=== PATIENT | female | born 1935 | race Caucasian/White ===

== ENCOUNTER → 2023-04-13 10:58 | Outpatient (REF) | payer MEDICARE, OTHER, SELFPAY | LOC: DHCBC/DCA 10:58 | PROVIDERS: ATTENDING PHYSICIAN Nurse Practitioner; FAMILY PHYSICIAN Family Medicine | DX: R07.89 Other chest pain (principal) | CPT/HCPCS: 78452; 93017; A9500; J2785 ==

== ENCOUNTER 2023-04-14 18:13 | Emergency (ER) | payer MEDICARE, OTHER, SELFPAY ==
[2023-04-14 18:16] VITALS: BMI 23.4
[2023-04-14 18:18] VITALS: BP 137/86
[2023-04-14 18:33] LABS: Urine Albumin Trace (Neg - Trace); Urine Bilirubin Negative (Negative); Urine Character Clear (Clear); Urine Color Yellow; Urine Glucose Negative (Negative); Urine Ketone Negative (Negative); Urine Leukocyte 1+ (Negative); Urine Nitrite Negative (Negative); Urine Occult Blood Negative (Negative); Urine Specific Gravity 1.015 (<1.030); Urine Urobilinogen Negative (Neg - 1+)
[2023-04-14 18:45] LABS: Urine Red Blood Cell None Seen /HPF (0-2)
--- NOTE | 2023-04-14 19:10 | ED.GENMED ---
History of Present Illness
General
Chief Complaint: Urinary Symptoms
Source: patient
Exam Limitations: none
Time Seen by Provider: 04/14/23 18:35
Nursing documentation reviewed up to this point in time: agreed with
Travel History
Have you had any contact with someone who has COVID-19?: No
Do you have any symptoms of coronavirus? Fever > 100 degrees, chills, cough, shortness of breath, sore throat, loss of taste or smell, muscle aches, or headache?: No
History of Present Illness
History of Present Illness:
Patient is an 87-year-old female who presents to the ER for evaluation. Patient reports she has had urinary frequency for the past several days. She also had right flank/back pain which started about a week ago. She reports it was very intense
and severe however though it is not severe she still has it. She also has a pinched nerve in her back which is chronic but was not sure if this was the cause of her pain. She was treated for UTI several weeks ago. She denies any associated fever
chills nausea vomiting, abdominal pain.
Past History
Past History
ED Past Medical History: Other (kidney stones, diverticulitis, glaucoma, SVT)
ED Past Surgical History: Appendectomy, Bowel resection and Gynecological (hysterectomy)
Social History
Tobacco: Non-smoker
Alcohol: Occasional
Personal:
Living: alone
Employment: Retired
Family History
Family History: Negative Early CAD
Review of Systems
Review of Systems
Allergies reviewed?: Yes
All Other Systems: ROS reviewed and negative except as documented in HPI and ROS
Constitutional: Reports no symptoms; Denies fever, fatigue or chills
Respiratory: Reports no symptoms
Cardiac: Reports no symptoms
ABD/GI: Reports no symptoms; Denies nausea or vomiting
: Reports frequency and flank pain
Musculoskeletal: Reports other (right back pain )
Skin: Reports no symptoms
Neurological: Reports no symptoms
Psychiatric: Reports no symptoms
Phy Exam
General Physical Exam
General Presentation: no apparent distress
General age: appears stated age
General Skin: warm and dry
General Habitus: elderly
General Mental: alert
Gastrointestinal Exam
Gastrointestinal Exam: non tender and soft
Neurological Exam
Neurological Exam: alert and oriented x3
Musculoskeletal Exam
Musculoskeletal Exam: full ROM
Skin Exam
Skin Exam: normal color and warm/dry
Psychiatric Exam
Psychiatric Exam: normal mood/affect
Course
Orders/Labs/Results
Orders:
Orders
04/14/23 18:24
Urinalysis Reflex To Culture Urgent
Date Specimen was Collected: 04/14/23
Time Specimen was Collected: 18:20
Urine Microscopic Reflex Cult Urgent
Urine Culture Urgent
FRANKY Source: U
Specimen Description:
Date Specimen was Collected: 04/14/23
Time Specimen was Collected: 18:20
04/14/23 19:17
IV Insert/Care/Rem.- Treatment PRN
04/14/23 19:18
CT Abd/pel Without Iv Or Oral Urgent
Comment:
Reason For Exam: right flank pain
04/14/23 19:27
Complete Blood Count/With Diff Urgent
Comprehensive Metabolic Panel Urgent
04/14/23 21:22
Vital Signs- Treatment ONCE
Frequency: Once
04/14/23 21:23
Add On - Microbiology Urgent
Tests Added?: urine culture
Abnormal Lab Results
04/14/23 04/14/23
18:24 19:27
RBC 3.92 L 10^6/uL
(4.20-5.40)
Hct 35.6 L %
(37.0-47.0)
BUN 18 H mg/dl
(7-17)
Glucose 129 H mg/dl
(70-99)
Leukocyte Esterase Rfl 1+ A
(Negative)
04/14/23 19:27
04/14/23 19:27
Vital Signs
Initial and Last Documented VS:
Initial Vital Signs
Temp Pulse Resp Pulse Ox
98.7 F 84 16 95
04/14/23 18:16 04/14/23 18:16 04/14/23 18:16 04/14/23 18:16
Last Documented Vital Signs
Temp Pulse Resp BP Pulse Ox
98.7 F 84 16 137/86 95
04/14/23 18:16 04/14/23 18:16 04/14/23 18:16 04/14/23 18:18 04/14/23 18:16
Push Button Switch Assembler consulted with Physician
Push Button Switch Assembler consulted with physician?: Yes
Name of Physician Consulted: nalini
MDM/Problems Addressed
Differential Diagnosis Includes:
Not limited to muscular back pain, UTI, renal colic, pyelonephritis
MDM/Problems Addressed:
Patient is an 87-year-old female who presented for urinary frequency. She was on antibiotics several weeks ago for UTI was concerned that she might have a UTI. She also had right-sided back pain several days ago was concerned about possible renal
stone. She does have history of nerve back pain and was unable to tell the difference. She presents here awake alert no acute distress denies any fever or chills. She is nontoxic afebrile with a normal white count stable hemoglobin urinalysis
does not appear infected. No obstructing renal calculi on CAT scan. Patient looks well nontoxic will DC home with close outpatient follow-up family doctor. I did add on urine culture
*Radiology
Radiology exam reviewed: radiology read reviewed
*Pulse Oximetry
Patient hypoxic: no
*Critical Care Note
Total Time (30-74mins, 75-104mins- exclusive of procedures): Not Applicable
ED Attending Note
-
Portions of this chart may have been created with voice recognition software.� Occasional wrong word or��sound alike� substitutions may have occurred due to the inherent limitations of voice recognition software.
Discharge Plan
Departure
Patient Disposition: Home (Routine Discharge)
Date of Disposition: 04/14/23
Time of Disposition: 21:22
Patient with high blood pressure during this ER visit?: Yes
Condition: Fair
Covid-19: Not Applicable
Discharge Problem:
Urinary frequency
Instructions: BLOOD PRESSURE
Prescriptions:
No Action
biotin 1 MG tablet
1 mg PO DAILY
omega 7-czh-jei-fish oil [Fish Oil] 1,000 MG capsule
1,000 mg PO DAILY
Hold Instructions: Resume on 03/17/22.
atenolol 25 MG tablet
37.5 mg PO BID
lorazepam 0.5 MG tablet
0.5 mg PO HS
tretinoin [Atralin] 45 GM gel
1 applic topical HSPRN PRN (Reason: FACIAL BLOTCHES )
Lumigan 1 DROP drops
1 drp BOTH EYES HS
Rosuvastatin Calcium
5 mg PO DAILY
Patient Comments:
CLARIFYING WITH PHARMACY 08/29/20
Zebic Multivitamin 1 TABLET
1 tab PO DAILY
coenzyme Q10 [Co Q-10] 200 mg Capsule
200 mg PO DAILY
Hold Instructions: Resume on 03/17/22.
Prolia 60 mg/mL Syringe
60 mg SC [id number]
docusate sodium 100 mg Capsule
100 mg PO BID Qty: 30 0RF
polyethylene glycol 3350 17 gram Powder In Packet
17 g PO DAILY Qty: 14 0RF
pantoprazole 40 mg Tablet,Delayed Release (Dr/Ec)
40 mg PO DAILY Qty: 30 0RF
Rx Instructions:
Take daily while on pain meds to avoid GI upset.
sennosides [senna] 8.6 mg Tablet
17.2 mg PO BID Qty: 30 0RF
prednisone 10 mg tablet
30 mg PO TAPER Qty: 12 0RF
Rx Instructions:
3 TABS X 2 DAYS, 2 TABS X 2 DAYS, 1 TAB X 2 DAYS, THEN STOP
acetaminophen-codeine 300-30 mg tablet
1 tab PO Q6H PRN (Reason: moderate-severe pain) Qty: 30 0RF
Rx Instructions:
1 tab for moderate pain, 2 if severe.
Dx discectomy. Ongoing therapy.
acetaminophen 325 mg capsule
650 mg PO Q4H PRN (Reason: mild pain) Qty: 60 0RF
Rx Instructions:
DO NOT exceed >4000 mg daily while on Tylenol with Codeine.
1 Tylenol with Codeine = 300 mg of Tylenol.
cephalexin 500 mg capsule
500 mg PO QID Qty: 20 0RF
Saccharomyces boulardii [Florastor] 250 mg capsule
250 mg PO BID Qty: 10 0RF
Rx Instructions:
Over the counter. Take while on antibiotic.
If unavailable, choose another probiotic.
ciprofloxacin drops
1 drp RIGHT EYE QID Qty: 0 0RF
Rx Instructions:
for rt corneal abrasion
pantoprazole [Protonix] 40 mg tablet,delayed release (DR/EC)
40 mg PO DAILY Qty: 14 0RF
cephalexin 500 mg capsule
500 mg PO BID 7 Days Qty: 14 0RF
Referrals:
Britney Valenzuela NP [Family Provider] -
Activity Restrictions/Additional Instructions:
You were seen here today for urinary frequency however there was no obvious urine infection in your urinalysis. Your labs are unremarkable. A urine culture will be sent. Stay well-hydrated. Follow-up with your family doctor the next 2 to 3 days
for reevaluation of your symptoms and return if any worsening of symptoms
Interventions
Interventions:
*General Assessment Last Done: 04/14/23 18:16
ED- Fall Risk Assessment Last Done: 04/14/23 19:33
*ED COVID-19 Vaccine History Last Done: 04/14/23 18:16
[2023-04-14 19:37] LABS: % Basophils 0.4 % (0-2); % Eosinophils 0.3 % (0-6); % Immature Granulocytes 0.3 % (0-0.5); % Lymphocytes 22.1 % (20.5-51.1); % Monocytes 8.3 % (1.7-9.3); % Neutrophils 68.6 % (42.2-75.2); Absolute Lymphocytes 1.7 10^3/uL (1.2-3.4); Absolute Monocytes 0.6 10^3/uL (0.1-0.6); Absolute Neutrophils 5.1 10^3/uL (1.4-6.5); Hematocrit 35.6 % (37.0-47.0); Hemoglobin 12.1 g/dL (12.0-16.0); Mean Corpuscular Hgb 30.9 pg (27.0-31.0); Mean Corpuscular Volume 90.8 fL (81.0-99.0); Mean Platelet Volume 10.3 fL (7.4-10.4); Nucleated Red Blood Cells % 0 %; Platelet Count 234 10^3/uL (130-400); Red Blood Cell Count 3.92 10^6/uL (4.20-5.40); Red Cell Dist. Width 13.3 % (11.5-14.5); White Blood Cell Count 7.5 10^3/uL (4.8-10.8)
[2023-04-14 19:52] LABS: ALT (SGPT) 20 U/L (0-35); AST (SGOT) 26 U/L (14-36); Alkaline Phosphatase 59 U/L (38-126); Blood Urea Nitrogen 18 mg/dl (7-17); Calcium 9.8 mg/dl (8.4-10.2); Carbon Dioxide 26 mmol/L (22-30); Chloride 104 mmol/L (98-107); Estimated Creatinine Clearance 49 ml/min; Glucose 129 mg/dl (70-99); Sodium 138 mmol/L (135-145); Total Bilirubin 0.8 mg/dl (0.2-1.3); Total Protein 6.3 g/dl (6.3-8.2); eGFR > 60.00
[2023-04-14 21:28] VITALS: BP 113/77
== END 2023-04-14 21:50 | disposition home or self-care (01) ==
LOC: EMR 18:13
PROVIDERS: Emergency Medicine; Nurse Practitioner; EMERGENCY PHYSICIAN Emergency Medicine; FAMILY PHYSICIAN Nurse Practitioner Family
DX: R35.0 Frequency of micturition (principal); R10.9 Unspecified abdominal pain; R03.0 Elevated blood-pressure reading, without diagnosis of hypertension; Z87.442 Personal history of urinary calculi
CPT/HCPCS: 99284; 74176; 80053; 81003; 81015; 85025; 87086

== ENCOUNTER 2023-04-21 10:49 | Emergency (ER) | payer MEDICARE, OTHER, SELFPAY ==
[2023-04-21 10:52] VITALS: BP 164/70
--- NOTE | 2023-04-21 11:22 | ED.GENMED ---
History of Present Illness
General
Chief Complaint: Heart Rate Problem
Time Seen by Provider: 04/21/23 11:07
Travel History
Have you had any contact with someone who has COVID-19?: No
Do you have any symptoms of coronavirus? Fever > 100 degrees, chills, cough, shortness of breath, sore throat, loss of taste or smell, muscle aches, or headache?: No
History of Present Illness
History of Present Illness:
HPI: The patient presents from urgent care due to abnormal EKG. She went to urgent care today (daughter arrange for her to go there by an Uber) because of generalized weakness and she slept a lot yesterday. She thinks she has not been drinking
much water since yesterday. She has an upcoming epidural and has been undergoing preadmission testing recently.
EXAM:
GENERAL: Well appearing in no distress
HEENT: Moist oral mucosa
CARDIOVASCULAR: No murmurs, normal heart rate and rhythm, No chest wall tenderness
PULMONARY: No respiratory distress, breath sounds are clear and equal
ABDOMEN: Soft with no peritoneal signs, no tenderness
NEUROLOGIC: Excellent strength all extremities, no coordination deficits
PSYCHIATRIC: Appropriate mental status, normal insight and judgement
EXTREMITIES: Nontender, no edema, moves all extremities equally
SKIN: No rash, no lesions
ED COURSE:
12 PM: I initially evaluated patient
NUMBER AND COMPLEXITY OF PROBLEMS ADDRESSED AT THE ENCOUNTER
� Chronic conditions affecting care: Has had SVT, hyperlipidemia, IBS, diverticulitis
� Acute Exacerbation and/or Progression of Chronic Illness: This is an acute
� Differential Diagnosis includes: Dehydration, electrolyte abnormality, A-fib, other dysrhythmia, ectopy
AMOUNT AND/OR COMPLEXITY OF DATA TO BE REVIEWED AND ANALYZED
� I performed an independent evaluation of and my interpretation is:
EKG: Sinus 71, frequent atrial ectopy which is new in comparison to 2010
CT:
X-rays:
Laboratory Studies: CBC and initial troponin negative, TSH unremarkable, BUN to creatinine ratio slightly elevated 24 and 0.5 suggesting dehydration
Other:
� Review of other/old records: BUN over a week ago was lower than it was today
� Clinical information was obtained by an independent historian: I spoke to family at bedside
� Prescriptions/Medications Considered but not given:
� Further testing considered but not performed:
RISK OF COMPLICATIONS AND/OR MORBIDITY OR MORTALITY OF PATIENT MANAGEMENT
� Social determinants of health affecting care: Lives at home
� Discussion with other providers:
� Escalation of care including admission/observation vs risk of discharge considered: The patient was given IV fluids and feels improved. Lab work is relatively unremarkable with exception of elevated BUN. On reassessment at
time of discharge around 2 PM, the patient is well-appearing. There has been a significant decrease in the amount of atrial ectopy. Does have a sas etl developer to follow-up with.
Past History
Past History
ED Past Medical History: Other (kidney stones, diverticulitis, glaucoma, SVT)
ED Past Surgical History: Appendectomy, Bowel resection and Gynecological (hysterectomy)
Social History
Tobacco: Non-smoker
Alcohol: Occasional
Personal:
Living: alone
Employment: Retired
Family History
Family History: Negative Early CAD
Phy Exam
Physical Exam
Physical Exam:
See HPI
Course
Orders/Labs/Results
Orders:
Orders
04/21/23 10:51
EKG [Electrocardiogram (*1)] Urgent
Reason for Study: Palpitations
EKG- Treatment ONCE
04/21/23 11:24
0.9% Sodium Chloride 500 ml [Nss] 500 ml IV BOLUS
04/21/23 12:06
Complete Blood Count/With Diff Urgent
TSH Reflex To Free T4 Urgent
04/21/23 12:46
Basic Metabolic Panel Urgent
Magnesium Urgent
Troponin I Urgent
Abnormal Lab Results
04/21/23 04/21/23
12:06 12:46
RBC 3.99 L 10^6/uL
(4.20-5.40)
MCH 31.3 H pg
(27.0-31.0)
MPV 10.8 H fL
(7.4-10.4)
Absolute Monos (auto) 0.7 H 10^3/uL
(0.1-0.6)
BUN 24 H mg/dl
(7-17)
Creatinine 0.5 L mg/dL
(0.6-1.0)
Glucose 120 H mg/dl
(70-99)
04/21/23 12:06
04/21/23 12:46
Vital Signs
Initial and Last Documented VS:
Initial Vital Signs
Temp Pulse Resp BP Pulse Ox
98.4 F 77 18 164/70 98
04/21/23 10:52 04/21/23 10:52 04/21/23 10:52 04/21/23 10:52 04/21/23 10:52
Last Documented Vital Signs
Temp Pulse Resp BP Pulse Ox
98.4 F 72 16 164/70 98
04/21/23 10:52 04/21/23 13:30 04/21/23 13:30 04/21/23 10:52 04/21/23 10:52
*Critical Care Note
Total Time (30-74mins, 75-104mins- exclusive of procedures): Not Applicable
ED Attending Note
-
Portions of this chart may have been created with voice recognition software.� Occasional wrong word or��sound alike� substitutions may have occurred due to the inherent limitations of voice recognition software.
Discharge Plan
Departure
Patient Disposition: Home (Routine Discharge)
Date of Disposition: 04/21/23
Time of Disposition: 13:57
Patient with high blood pressure during this ER visit?: Yes
Discharge Problem:
Atrial bigeminy
Instructions: Dehydration, Adult (DC), BLOOD PRESSURE
Prescriptions:
No Action
biotin 1 MG tablet
1 mg PO DAILY
omega 1-xsy-zjo-fish oil [Fish Oil] 1,000 MG capsule
1,000 mg PO DAILY
Hold Instructions: Resume on 03/17/22.
atenolol 25 MG tablet
37.5 mg PO BID
lorazepam 0.5 MG tablet
0.5 mg PO HS
tretinoin [Atralin] 45 GM gel
1 applic topical HSPRN PRN (Reason: FACIAL BLOTCHES )
Lumigan 1 DROP drops
1 drp BOTH EYES HS
Rosuvastatin Calcium
5 mg PO DAILY
Patient Comments:
CLARIFYING WITH PHARMACY 08/29/20
Zebic Multivitamin 1 TABLET
1 tab PO DAILY
coenzyme Q10 [Co Q-10] 200 mg Capsule
200 mg PO DAILY
Hold Instructions: Resume on 03/17/22.
Prolia 60 mg/mL Syringe
60 mg SC [id number]
docusate sodium 100 mg Capsule
100 mg PO BID Qty: 30 0RF
polyethylene glycol 3350 17 gram Powder In Packet
17 g PO DAILY Qty: 14 0RF
pantoprazole 40 mg Tablet,Delayed Release (Dr/Ec)
40 mg PO DAILY Qty: 30 0RF
Rx Instructions:
Take daily while on pain meds to avoid GI upset.
sennosides [senna] 8.6 mg Tablet
17.2 mg PO BID Qty: 30 0RF
prednisone 10 mg tablet
30 mg PO TAPER Qty: 12 0RF
Rx Instructions:
3 TABS X 2 DAYS, 2 TABS X 2 DAYS, 1 TAB X 2 DAYS, THEN STOP
acetaminophen-codeine 300-30 mg tablet
1 tab PO Q6H PRN (Reason: moderate-severe pain) Qty: 30 0RF
Rx Instructions:
1 tab for moderate pain, 2 if severe.
Dx discectomy. Ongoing therapy.
acetaminophen 325 mg capsule
650 mg PO Q4H PRN (Reason: mild pain) Qty: 60 0RF
Rx Instructions:
DO NOT exceed >4000 mg daily while on Tylenol with Codeine.
1 Tylenol with Codeine = 300 mg of Tylenol.
cephalexin 500 mg capsule
500 mg PO QID Qty: 20 0RF
Saccharomyces boulardii [Florastor] 250 mg capsule
250 mg PO BID Qty: 10 0RF
Rx Instructions:
Over the counter. Take while on antibiotic.
If unavailable, choose another probiotic.
ciprofloxacin drops
1 drp RIGHT EYE QID Qty: 0 0RF
Rx Instructions:
for rt corneal abrasion
pantoprazole [Protonix] 40 mg tablet,delayed release (DR/EC)
40 mg PO DAILY Qty: 14 0RF
cephalexin 500 mg capsule
500 mg PO BID 7 Days Qty: 14 0RF
Referrals:
Britney Valenzuela NP [Family Provider] -
Activity Restrictions/Additional Instructions:
Some of your blood work suggest a little bit of dehydration. We did give IV fluids. Other basic blood work was unremarkable. Follow-up with your sas etl developer.
Interventions
Interventions:
*Risk Screen - Suicide Last Done: 04/21/23 10:52
*General Assessment Last Done: 04/21/23 10:52
*Neglect/Abuse Screening Last Done: 04/21/23 10:52
ED- Fall Risk Assessment Last Done: 04/21/23 11:48
*ED COVID-19 Vaccine History Last Done: 04/21/23 10:52
ED- Cardiac Assessment Last Done: 04/21/23 11:48
ED- Pulmonary Assessment Last Done: 04/21/23 11:48
[2023-04-21 11:48] VITALS: BMI 22.2
[2023-04-21] MEDS: NSS 500 IV (12:04)
[2023-04-21 12:20] LABS: % Basophils 0.7 % (0-2); % Eosinophils 1.7 % (0-6); % Immature Granulocytes 0.4 % (0-0.5); % Lymphocytes 25.5 % (20.5-51.1); % Neutrophils 63.7 % (42.2-75.2); Absolute Basophils 0.1 10^3/uL (0-0.2); Absolute Eosinophils 0.2 10^3/uL (0-0.7); Absolute Lymphocytes 2.3 10^3/uL (1.2-3.4); Absolute Monocytes 0.7 10^3/uL (0.1-0.6); Absolute Neutrophils 5.8 10^3/uL (1.4-6.5); Hematocrit 37.8 % (37.0-47.0); Hemoglobin 12.5 g/dL (12.0-16.0); Mean Corp Hgb Conc. 33.1 g/dL (33.0-37.0); Mean Corpuscular Hgb 31.3 pg (27.0-31.0); Mean Corpuscular Volume 94.7 fL (81.0-99.0); Mean Platelet Volume 10.8 fL (7.4-10.4); Nucleated Red Blood Cells % 0 %; Platelet Count 210 10^3/uL (130-400); Red Blood Cell Count 3.99 10^6/uL (4.20-5.40); Red Cell Dist. Width 13.2 % (11.5-14.5); White Blood Cell Count 9.2 10^3/uL (4.8-10.8)
[2023-04-21 13:22] LABS: Troponin I < 0.012 ng/ml
[2023-04-21 13:47] LABS: Sodium 137 mmol/L (135-145)
[2023-04-21 13:48] LABS: Blood Urea Nitrogen 24 mg/dl (7-17); Calcium 8.9 mg/dl (8.4-10.2); Carbon Dioxide 27 mmol/L (22-30); Chloride 107 mmol/L (98-107); Estimated Creatinine Clearance 52 ml/min; Glucose 120 mg/dl (70-99); Magnesium 2.1 mg/dl (1.6-2.3); Potassium 4.4 mmol/L (3.5-5.1); eGFR > 60.00
[2023-04-21 14:34] VITALS: BP 138/51
== END 2023-04-21 14:41 | disposition home or self-care (01) ==
LOC: EMR 10:49
PROVIDERS: EMERGENCY PHYSICIAN Emergency Medicine; FAMILY PHYSICIAN Nurse Practitioner Family
DX: R00.8 Other abnormalities of heart beat (principal); R03.0 Elevated blood-pressure reading, without diagnosis of hypertension
CPT/HCPCS: 99284; 80048; 83735; 84443; 84484; 85025; 93005

== ENCOUNTER 2023-09-08 20:12 | Emergency (ER) | payer MEDICARE, OTHER, SELFPAY ==
[2023-09-08 20:30] VITALS: BP 164/80
--- NOTE | 2023-09-08 22:26 | ED.GENMED ---
History of Present Illness
General
Chief Complaint: Fall
Source: patient and family (Daughter)
Exam Limitations: none
Time Seen by Provider: 09/08/23 22:08
Nursing documentation reviewed up to this point in time: agreed with
History of Present Illness
History of Present Illness:
Pleasant 88-year-old female that presents with head injury. Approximately 3 hours prior to arrival she was getting out of her car when she slipped striking the back of the head on the pavement. She denies loss of consciousness. She reported some
bleeding which she stopped with ice. She had a small headache that resolved shortly thereafter. She then proceeded to do crossword puzzles for the next few hours without issue. She states that the bleeding started up again so she came into the
emergency department. She denies any other pain. Denies loss of consciousness. Reports no nausea or vomiting. Denies blurry vision. Currently she has no headache. Denies neck pain.
Past History
Past History
ED Past Medical History: Other (kidney stones, diverticulitis, glaucoma, SVT)
ED Past Surgical History: Appendectomy, Bowel resection and Gynecological (hysterectomy)
Social History
Tobacco: Non-smoker
Alcohol: Occasional
Personal:
Living: alone
Employment: Retired
Family History
Family History: Negative Early CAD
Review of Systems
Review of Systems
Allergies reviewed?: Yes
Other source history: family
All Other Systems: ROS reviewed and negative except as documented in HPI and ROS
Constitutional: Reports no symptoms
EENT: Reports no symptoms
Respiratory: Reports no symptoms
Cardiac: Reports no symptoms
ABD/GI: Reports no symptoms
: Reports no symptoms
Musculoskeletal: Reports no symptoms
Skin: Reports no symptoms
Neurological: Reports no symptoms
Endocrine: Reports no symptoms
Hematologic/Lymphatic: Reports no symptoms
Psychiatric: Reports no symptoms
Phy Exam
General Physical Exam
General Presentation: well appearing and no apparent distress
General Skin: warm and dry
General Habitus: normal
General Mental: alert
General Hydration: appears well hydrated
ENT Exam
ENT Exam: EOMI, pharynx normal, neck supple and normocephalic
Eye Exam
Eye Exam: PERRL, cornea clear and conjunctiva normal
Cardiovascular Exam
Cardiovascular Exam: regular rate/rhythm, no edema, no murmur and normal peripheral pulses
Pulmonary Exam
Pulmonary Exam: lungs clear, no respiratory distress, no rales, no crackles, no rhonchi, no stridor, no wheezing and no cough
Gastrointestinal Exam
Gastrointestinal Exam: normal bowel sounds, non tender, soft, no organomegaly, no pulsatile mass and non distended
Neurological Exam
Neurological Exam: alert, oriented x3, no motor deficits and speech normal
Musculoskeletal Exam
Musculoskeletal Exam: full ROM and no edema
Skin Exam
Skin Exam: normal color, warm/dry, no rash, no petechia and other (abrasion posterior scalp)
Psychiatric Exam
Psychiatric Exam: normal mood/affect
Course
Orders/Labs/Results
Orders:
Orders
09/08/23 20:36
CT Head W/o Iv Contrast Urgent
Comment:
Reason For Exam: head injury
Vital Signs
Initial and Last Documented VS:
Initial Vital Signs
Temp Pulse Resp BP Pulse Ox
98 F 95 20 164/80 96
09/08/23 20:30 09/08/23 20:30 09/08/23 20:30 09/08/23 20:30 09/08/23 20:30
Last Documented Vital Signs
Temp Pulse Resp BP Pulse Ox
98 F 95 20 164/80 96
09/08/23 20:30 09/08/23 20:30 09/08/23 20:30 09/08/23 20:30 09/08/23 20:30
*Critical Care Note
Total Time (30-74mins, 75-104mins- exclusive of procedures): Not Applicable
Update Note
Update Note:
Small abrasion to the posterior scalp. No need for repair. Tetanus shot up-to-date. She is not on anticoagulants. Patient to get a CAT scan.
ED Attending Note
-
Portions of this chart may have been created with voice recognition software.� Occasional wrong word or��sound alike� substitutions may have occurred due to the inherent limitations of voice recognition software.
Discharge Plan
Departure
Patient Disposition: Home (Routine Discharge)
Date of Disposition: 09/08/23
Time of Disposition: 22:39
Patient with high blood pressure during this ER visit?: No
Condition: Good
Discharge Problem:
Head injury
Instructions: Wound Care (DC), Preventing falls in adults, Skin Abrasions (DC)
Prescriptions:
No Action
biotin 1 MG tablet
1 mg PO DAILY
omega 5-khj-owk-fish oil [Fish Oil] 1,000 MG capsule
1,000 mg PO DAILY
Hold Instructions: Resume on 03/17/22.
atenolol 25 MG tablet
37.5 mg PO BID
lorazepam 0.5 MG tablet
0.5 mg PO HS
tretinoin [Atralin] 45 GM gel
1 applic topical HSPRN PRN (Reason: FACIAL BLOTCHES )
Lumigan 1 DROP drops
1 drp BOTH EYES HS
Rosuvastatin Calcium
5 mg PO DAILY
Patient Comments:
CLARIFYING WITH PHARMACY 08/29/20
Zebic Multivitamin 1 TABLET
1 tab PO DAILY
coenzyme Q10 [Co Q-10] 200 mg Capsule
200 mg PO DAILY
Hold Instructions: Resume on 03/17/22.
Prolia 60 mg/mL Syringe
60 mg SC [id number]
docusate sodium 100 mg Capsule
100 mg PO BID Qty: 30 0RF
polyethylene glycol 3350 17 gram Powder In Packet
17 g PO DAILY Qty: 14 0RF
pantoprazole 40 mg Tablet,Delayed Release (Dr/Ec)
40 mg PO DAILY Qty: 30 0RF
Rx Instructions:
Take daily while on pain meds to avoid GI upset.
sennosides [senna] 8.6 mg Tablet
17.2 mg PO BID Qty: 30 0RF
prednisone 10 mg tablet
30 mg PO TAPER Qty: 12 0RF
Rx Instructions:
3 TABS X 2 DAYS, 2 TABS X 2 DAYS, 1 TAB X 2 DAYS, THEN STOP
acetaminophen-codeine 300-30 mg tablet
1 tab PO Q6H PRN (Reason: moderate-severe pain) Qty: 30 0RF
Rx Instructions:
1 tab for moderate pain, 2 if severe.
Dx discectomy. Ongoing therapy.
acetaminophen 325 mg capsule
650 mg PO Q4H PRN (Reason: mild pain) Qty: 60 0RF
Rx Instructions:
DO NOT exceed >4000 mg daily while on Tylenol with Codeine.
1 Tylenol with Codeine = 300 mg of Tylenol.
cephalexin 500 mg capsule
500 mg PO QID Qty: 20 0RF
Saccharomyces boulardii [Florastor] 250 mg capsule
250 mg PO BID Qty: 10 0RF
Rx Instructions:
Over the counter. Take while on antibiotic.
If unavailable, choose another probiotic.
ciprofloxacin drops
1 drp RIGHT EYE QID Qty: 0 0RF
Rx Instructions:
for rt corneal abrasion
pantoprazole [Protonix] 40 mg tablet,delayed release (DR/EC)
40 mg PO DAILY Qty: 14 0RF
cephalexin 500 mg capsule
500 mg PO BID 7 Days Qty: 14 0RF
Referrals:
Phani Morales DO [Family Provider] -
Activity Restrictions/Additional Instructions:
It was a pleasure meeting you and taking part in your care. We hope for your continued healing and wellness.
Please read discharge instructions in their entirety. However, they are for general education and may not describe your exact diagnosis at discharge. Information on your ER visit and medical conditions were discussed with you along with appropriate
follow up information...
If indicated, please take your medications as instructed and indicated on discharge paperwork.
Please schedule a follow up appointment as directed. Call to schedule an appointment
Please return to the emergency department with ANY change in, persisting, or worsening of symptoms. If any of your symptoms do not improve, or persist, or become more severe within 6-12 hours, please return to the emergency department for further
care.
Please return to the emergency department if you develop a headache, neck pain/stiffness, fever greater than 100.4F, chest pain, shortness of breath, persistent nausea, vomiting, slurred speech, difficulty walking, numbness/tingling, weakness, signs
of infection or any other symptoms that are worrisome to you.
If you have any questions or concerns please do not hesitate to call the Hospital at or E-mail me directly at [email or web address]
Interventions
Interventions:
*Risk Screen - Suicide Last Done: 09/08/23 20:30
*General Assessment Last Done: 09/08/23 20:30
*Neglect/Abuse Screening Last Done: 09/08/23 20:30
ED- Fall Risk Assessment Last Done: 09/08/23 20:30
*ED COVID-19 Vaccine History Last Done: 09/08/23 20:30
*Nursing Disposition Last Done: 09/08/23 23:22
ED- Neurological Assessment Last Done: 09/08/23 21:30
ED-Skin Assessment Last Done: 09/08/23 21:30
Discharge Date and Time
Discharge Date/Time: 09/08/23 23:22
Print Language: [facility] [place]
== END 2023-09-08 23:22 | disposition home or self-care (01) ==
LOC: EMR 20:12
PROVIDERS: EMERGENCY PHYSICIAN Student in an Organized Health Care Education/Training Program; FAMILY PHYSICIAN Family Medicine
DX: S09.90XA Unspecified injury of head, initial encounter (principal); W01.0XXA Fall on same level from slipping, tripping and stumbling without subsequent striking against object, initial encounter
CPT/HCPCS: 99284; 70450

== ENCOUNTER 2023-11-23 09:36 | Inpatient (IN) | payer MEDICARE, OTHER, SELFPAY ==
[2023-11-19] VITALS (8 sets, daily range): BP systolic 99–152; BP diastolic 65–92; BMI 23.9; BMI 21.8
[2023-11-19 09:23] LABS: % Basophils 0.8 % (0-2); % Eosinophils 9.9 % (0-6); % Immature Granulocytes 0.2 % (0-0.5); % Lymphocytes 22.5 % (20.5-51.1); % Monocytes 7.1 % (1.7-9.3); % Neutrophils 59.5 % (42.2-75.2); Absolute Basophils 0.1 10^3/uL (0-0.2); Absolute Eosinophils 0.6 10^3/uL (0-0.7); Absolute Lymphocytes 1.4 10^3/uL (1.2-3.4); Absolute Monocytes 0.4 10^3/uL (0.1-0.6); Absolute Neutrophils 3.7 10^3/uL (1.4-6.5); Hematocrit 38.8 % (37.0-47.0); Hemoglobin 12.9 g/dL (12.0-16.0); Mean Corp Hgb Conc. 33.2 g/dL (33.0-37.0); Mean Corpuscular Volume 90.2 fL (81.0-99.0); Mean Platelet Volume 10.4 fL (7.4-10.4); Nucleated Red Blood Cells % 0 %; Platelet Count 218 10^3/uL (130-400); Red Cell Dist. Width 12.8 % (11.5-14.5); White Blood Cell Count 6.2 10^3/uL (4.8-10.8)
[2023-11-19 09:28] LABS: Urine Albumin Negative (Neg - Trace); Urine Bilirubin Negative (Negative); Urine Character Clear (Clear); Urine Color Yellow; Urine Glucose Negative (Negative); Urine Ketone Negative (Negative); Urine Leukocyte Negative (Negative); Urine Nitrite Negative (Negative); Urine Occult Blood Negative (Negative); Urine Specific Gravity 1.015 (<1.030); Urine Urobilinogen Negative (Neg - 1+); Urine pH 6.5 (5.0-9.0)
[2023-11-19 09:35] LABS: ALT (SGPT) 18 U/L (0-35); AST (SGOT) 27 U/L (14-36); Albumin 4.7 g/dl (3.5-5.0); Alkaline Phosphatase 64 U/L (38-126); Blood Urea Nitrogen 26 mg/dl (7-17); Calcium 10.2 mg/dl (8.4-10.2); Carbon Dioxide 26 mmol/L (22-30); Chloride 103 mmol/L (98-107); Glucose 165 mg/dl (70-99); Potassium 4.3 mmol/L (3.5-5.1); Sodium 143 mmol/L (135-145); Total Bilirubin 0.8 mg/dl (0.2-1.3); Total Protein 6.7 g/dl (6.3-8.2); eGFR > 60.00
--- NOTE | 2023-11-19 09:54 | ED.GENMED ---
History of Present Illness
General
Chief Complaint: Change in Mental Status
Source: patient
Exam Limitations: none
Time Seen by Provider: 11/19/23 09:30
History of Present Illness
History of Present Illness:
88-year-old female presents from home with her daughter who states the patient has had onset of confusion starting yesterday. She was here about 6 weeks ago after a fall and hitting her head. She had a CT of her head that was negative. She has
been dealing with intermittent headaches and dizziness since then however starting yesterday she became confused. She confused about the date she thought she had appointments coming up that were not a for 6 weeks from now. There has been no fever.
No chest pain or shortness of breath. No abdominal pain or urinary symptoms. No other complaints at this time
Past History
Past History
ED Past Medical History: Other (kidney stones, diverticulitis, glaucoma, SVT)
ED Past Surgical History: Appendectomy, Bowel resection and Gynecological (hysterectomy)
Social History
Tobacco: Non-smoker
Alcohol: Occasional
Personal:
Living: alone
Employment: Retired
Family History
Family History: Negative Early CAD
Phy Exam
Physical Exam
Physical Exam:
General: Well-appearing female no acute respiratory distress
HEENT: Normocephalic atraumatic
Heart: Regular rate and rhythm no murmurs
Lungs: Clear no wheeze
Neurologic exam: Alert and oriented no facial asymmetry no drift finger-nose and apyi-ts-clho intact. Extraocular motions are intact
Musculoskeletal exam: There is mild tenderness about the cervical spine. Good range of motion all extremities
Abdomen is soft nontender nondistended
Course
Orders/Labs/Results
Orders:
Orders
11/19/23 09:00
Complete Blood Count/With Diff Urgent
Comprehensive Metabolic Panel Urgent
Urinalysis Reflex To Culture Urgent
Date Specimen was Collected: 11/19/23
Time Specimen was Collected: 08:50
11/19/23 09:46
Electrocardiogram (*1) Urgent
Reason for Study: Palpitations
CT Cervical Spine W/o Iv Contr Urgent
Comment:
Reason For Exam: neck pain
EKG- Treatment ONCE
11/19/23 09:47
CT Head W/o Iv Contrast Urgent
Comment:
Reason For Exam: headache, confusion
Abnormal Lab Results
11/19/23
09:00
Eosinophils % 9.9 H %
(0-6)
BUN 26 H mg/dl
(7-17)
Glucose 165 H mg/dl
(70-99)
11/19/23 09:00
11/19/23 09:00
Vital Signs
Initial and Last Documented VS:
Initial Vital Signs
Temp Pulse Resp BP Pulse Ox
98.1 F 99 16 135/92 98
11/19/23 08:45 11/19/23 08:45 11/19/23 08:45 11/19/23 08:45 11/19/23 08:45
Last Documented Vital Signs
Temp Pulse Resp BP Pulse Ox
97.5 F 94 22 136/66 98
11/19/23 10:06 11/19/23 10:30 11/19/23 10:30 11/19/23 10:06 11/19/23 10:30
MDM/Problems Addressed
Differential Diagnosis Includes:
Confusion starting yesterday. Consider metabolic abnormality versus electrolyte disturbance versus UTI. Recent trauma will CT head and cervical spine. Check labs EKG and urinalysis
Acute Exacerbation and/or Progression of Chronic Illness:
Acute confusion
*Critical Care Note
Total Time (30-74mins, 75-104mins- exclusive of procedures): Not Applicable
Update Note
Update Note:
Patient workup here is essentially negative CT head and cervical spine without acute findings. UA negative labs reviewed. Patient reexamined daughter still states that she is not quite himself and not back to baseline. She keeps having similar
conversations. This is different than baseline. Discussed with emergency room attending as well as family again. Will decide to keep in hospital for further evaluation for change in mental status.
ED Attending Note
-
Portions of this chart may have been created with voice recognition software.� Occasional wrong word or��sound alike� substitutions may have occurred due to the inherent limitations of voice recognition software.
Discharge Plan
Departure
Patient Disposition: Admit
Date of Disposition: 11/19/23
Time of Disposition: 12:37
Admit to: Telemetry
Presentation/result/management discussed w/ accepting MD/DO: Hospitalist
Discharge Problem:
Altered mental status
Prescriptions:
No Action
biotin 1 MG tablet
1 mg PO DAILY
omega 8-usn-cpl-fish oil [Fish Oil] 1,000 MG capsule
1,000 mg PO DAILY
atenolol 25 MG tablet
37.5 mg PO BID
lorazepam 0.5 MG tablet
0.5 mg PO HS
tretinoin [Atralin] 45 GM gel
1 applic topical HSPRN PRN (Reason: FACIAL BLOTCHES )
Lumigan 1 DROP drops
1 drp BOTH EYES HS
Rosuvastatin Calcium
5 mg PO DAILY
Patient Comments:
CLARIFYING WITH PHARMACY 08/29/20
Zebic Multivitamin 1 TABLET
1 tab PO DAILY
coenzyme Q10 [Co Q-10] 200 mg Capsule
200 mg PO DAILY
Prolia 60 mg/mL Syringe
60 mg SC [id number]
docusate sodium 100 mg Capsule
100 mg PO BID Qty: 30 0RF
polyethylene glycol 3350 17 gram Powder In Packet
17 g PO DAILY Qty: 14 0RF
pantoprazole 40 mg Tablet,Delayed Release (Dr/Ec)
40 mg PO DAILY Qty: 30 0RF
Rx Instructions:
Take daily while on pain meds to avoid GI upset.
sennosides [senna] 8.6 mg Tablet
17.2 mg PO BID Qty: 30 0RF
acetaminophen 325 mg capsule
650 mg PO Q4H PRN (Reason: mild pain) Qty: 60 0RF
Rx Instructions:
DO NOT exceed >4000 mg daily while on Tylenol with Codeine.
1 Tylenol with Codeine = 300 mg of Tylenol.
Saccharomyces boulardii [Florastor] 250 mg capsule
250 mg PO BID Qty: 10 0RF
Rx Instructions:
Over the counter. Take while on antibiotic.
If unavailable, choose another probiotic.
Referrals:
Phani Morales DO [Family Provider] -
Interventions
Interventions:
*Risk Screen - Suicide Last Done: 11/19/23 08:45
*General Assessment Last Done: 11/19/23 10:06
*Neglect/Abuse Screening Last Done: 11/19/23 08:45
ED- Fall Risk Assessment Last Done: 11/19/23 10:06
*ED COVID-19 Vaccine History Last Done: 11/19/23 10:06
ED- Pulmonary Assessment Last Done: 11/19/23 10:06
ED-Psychological Assessment Last Done: 11/19/23 10:06
ED- Neurological Assessment Last Done: 11/19/23 10:06
ED- Cardiac Assessment Last Done: 11/19/23 10:06
ED Swallowing Screen Last Done: 11/19/23 10:06
Discharge Date and Time
Print Language: ROMANIAN
--- NOTE | 2023-11-19 10:25 | EDRN ---
the pt is resting in stretcher in the lowest position, side rails up x2, call parikh within reach, HOB elevated, VS WNL, no s/s of distress, the pt has intermittent confusion, the pts daughter is currently at the pts bedside, will continue to monitor
the pt closely
--- NOTE | 2023-11-19 12:57 | EDRN ---
the pt is resting in stretcher in the lowest position, side rails up x2, call parikh within reach, HOB elevated, no s/s of distress, VS WNL, the pt offers no complaints at this time, awaiting for the pt to be admitted, will continue to monitor the pt
closely
--- NOTE | 2023-11-19 13:27 | HPS.HSE ---
Family Physician
-
Family Physician: Phani Morales
Chief Complaint
-
memory loss
History of Present Illness
88-year-old female past medical history of kidney stones, diverticulitis, glaucoma, SVT, anxiety, presenting with daughter for confusion starting yesterday. She was here 6 weeks ago after a fall and hitting her head. She had CT of her head that
was negative at that time. She has been dealing with intermittent posterior headaches and dizziness since then.
Daughter notes that patient was calling her in the middle of the night thinking that she had to go to appointments that were not for a few weeks. This is very unlike her normal self. Patient's memory to herself is intact.
Patient did not have any blurry vision, difficulty speaking or swallowing, numbness or tingling, focal weakness. She has chronic gait dysfunction which has not worsened in the past few weeks. Patient has had slow worsening of cognitive decline
over the past 6 months but very mild compared to the events in the past day.
Patient not having any sore throat, fevers or chills, cough, nausea vomiting, diarrhea, abdominal pain, urinary symptoms.
She denies smoking or alcohol use.
No new medications started recently.
Medical History
Past Medical History
Past Medical History: Reports Other ( kidney stones, diverticulitis, glaucoma, SVT, anxiety, )
Past Surgical History: Reports None
Social History
Tobacco: Non-smoker
Alcohol: None
Drug: None
Family History
Family History: Not pertinent
Allergies / Home Medications
Allergies reflects when Allergies were last updated in [employer].
Home Medications with original date entered in [facility]
Allergy/Medication List:
Allergies
Allergy/AdvReac Type Severity Reaction Status Date / Time
Antihistamines - Alkylamine Allergy .rapid Verified 11/19/23 08:49
heart rate
diphenhydramine Allergy Dizziness Verified 11/19/23 08:49
[From Benadryl]
gabapentin Allergy Dizziness, Verified 11/19/23 08:49
confusion
hydrocodone [From Vicodin] Allergy Rapid Verified 11/19/23 08:49
heart rate
iodine [Iodine] Allergy Nausea / Verified 11/19/23 08:49
Vomiting,
rash
mirabegron [From Myrbetriq] Allergy Intensified Verified 11/19/23 08:49
pain
morphine [Morphine] Allergy vomiting,di Verified 11/19/23 08:49
zziness
Sulfa (Sulfonamide Allergy Hives Verified 11/19/23 08:49
Antibiotics)
tramadol Allergy nausea, Verified 11/19/23 08:49
vomiting,
palpitations
Home Medications
biotin 1 mg tablet 1 mg PO DAILY 03/24/10
omega 6-dqt-ais-fish oil 1,000 mg (120 mg-180 mg) capsule (Fish Oil) 1,000 mg PO DAILY Supplement 03/24/10
atenolol 25 mg tablet 37.5 mg PO BID Arrhythmia 08/29/20
lorazepam 0.5 mg tablet 0.5 mg PO BID 08/29/20
rosuvastatin 5 mg tablet 5 mg PO DAILY ##0 08/29/20
therapeutic multivitamin 1 tab PO DAILY Supplement ##0 08/29/20
coenzyme Q10 200 mg capsule (Co Q-10) 200 mg PO DAILY 02/10/22
denosumab 60 mg/mL subcutaneous syringe (Prolia) 60 mg SC [id number] 02/19/22
carboxymethylcellulose sodium 0.25 % eye drops (TheraTears) 1 drp BOTH EYES QID 11/19/23
docusate sodium 100 mg capsule 100 mg PO HS 11/19/23
Review of Systems
-
History Source: Patient
A 12 point ROS was completed and negative except as noted: Yes
Constitutional: Reports No Symptoms
EENT: Reports No Symptoms
Respiratory: Reports No Symptoms
Cardiac: Reports No Symptoms
Abdomen/GI: Reports No Symptoms
: Reports No Symptoms
Musculoskeletal: Reports No Symptoms
Skin: Reports No Symptoms
Neurological: Reports No Symptoms
Endocrine: Reports No Symptoms
Hematologic/Lymphatic: Reports No Symptoms
Psych: Reports No Symptoms
Physical Exam
Vital Signs
Vital Signs
Temp Pulse Resp BP Pulse Ox
97.5 F 86 20 130/68 99
11/19/23 10:06 11/19/23 12:57 11/19/23 12:57 11/19/23 12:57 11/19/23 12:57
Physical Exam
General: Well Developed, Well Nourished and No Apparent Distress
HEENT: NormoCephalic, Moist mucous membranes and Atraumatic
Respiratory: Clear
Cardiac: S1/S2 and Regular Rhythm; No Murmur or Rub
GI: Soft, Non Tender, Non Distended and Normal Bowel Sounds; No Organomegaly
Rectal: Deferred by Provider
Musculoskeletal: No Clubbing, No Cyanosis and No Edema
Skin: No Rash
Neuro: Nonfocal/grossly intact
Laboratory Results
-
11/19/23 09:00
11/19/23 09:00
Laboratory Results
Total Bilirubin 0.8 mg/dl (0.2-1.3) 11/19/23 09:00
AST 27 U/L (14-36) 11/19/23 09:00
ALT 18 U/L (0-35) 11/19/23 09:00
Alkaline Phosphatase 64 U/L (38-126) 11/19/23 09:00
Data Reviewed
-
Lab Data: Labs Reviewed by me
Old Records: Reviewed
Impression/Plan
-
IMPRESSION:
PLAN:
# Acute memory impairment unclear etiology
-Patient is AAOx3, quite alert, not consistent with metabolic encephalopathy
-No neurological deficits at any time to suggest TIA
-CT head no acute abnormality
-CT cervical spine no acute abnormality
-Urinalysis unremarkable
-Patient appears to be having some headache, dizziness since her recent fall 6 weeks ago which could be attributed to postconcussive syndrome however unclear why memory impairment would start at this time
-Check TSH, B12
-Neurology consulted
-Consider MRI brain
History of kidney stones
Glaucoma
History of SVT
-Continue atenolol
Anxiety
-Hold Ativan
Osteoporosis
Hyperlipidemia
-Continue statin
DNR/DNI
DVT prophylaxis�SCDs
Regular diet
--- NOTE | 2023-11-19 13:53 | EDRN ---
this RN called the receiving unit and notified them that paper report was going to be tubed up
--- NOTE | 2023-11-19 15:00 | PTCARENOTE ---
Pt admitted to room 410-2, ambulated into room with x1 assist. VSS. Tele showing NSR with occasionally brief runs of SVT which patient states is not new for which she takes atenolol. Pt AAOx3. Daughter at bedside. Bed alarm placed on bed due to
cause of admission being confusion. Pt reports feeling forgetful at times. Oriented patient to room.
[2023-11-19 16:37] LABS: TSH Reflex To Free T4 0.82 uIU/ml (0.47-4.68)
[2023-11-19] MEDS: REFRESH CELLUVISC GEL 1 DROPS BOTH EYES ×2 (18:27→23:15)
[2023-11-19] MEDS: TENORMIN 37.5 MG PO (21:42)
[2023-11-19] MEDS: COLACE 100 MG PO (21:43)
[2023-11-19] MEDS: REFRESH CELLUVISC GEL BOTH EYES (22:10)
[2023-11-20] VITALS (7 sets, daily range): BP systolic 125–157; BP diastolic 62–82; PULSE 88; O2SAT 100
[2023-11-20 08:31] LABS: % Eosinophils 9.4 % (0-6); % Immature Granulocytes 0.2 % (0-0.5); % Lymphocytes 28.1 % (20.5-51.1); % Monocytes 7.9 % (1.7-9.3); % Neutrophils 53.4 % (42.2-75.2); Absolute Basophils 0.1 10^3/uL (0-0.2); Absolute Eosinophils 0.6 10^3/uL (0-0.7); Absolute Lymphocytes 1.7 10^3/uL (1.2-3.4); Absolute Monocytes 0.5 10^3/uL (0.1-0.6); Absolute Neutrophils 3.2 10^3/uL (1.4-6.5); Hematocrit 39.6 % (37.0-47.0); Hemoglobin 12.9 g/dL (12.0-16.0); Mean Corp Hgb Conc. 32.6 g/dL (33.0-37.0); Mean Corpuscular Hgb 29.9 pg (27.0-31.0); Mean Corpuscular Volume 91.7 fL (81.0-99.0); Mean Platelet Volume 10.5 fL (7.4-10.4); Nucleated Red Blood Cells % 0 %; Platelet Count 218 10^3/uL (130-400); Red Blood Cell Count 4.32 10^6/uL (4.20-5.40); Red Cell Dist. Width 12.8 % (11.5-14.5); White Blood Cell Count 6.1 10^3/uL (4.8-10.8)
[2023-11-20] MEDS: REFRESH CELLUVISC GEL BOTH EYES ×4 (08:51→21:04)
[2023-11-20] MEDS: THERAGRAN 1 TABLET PO (08:51)
[2023-11-20] MEDS: CRESTOR 5 MG PO (08:51)
[2023-11-20] MEDS: TENORMIN 37.5 MG PO ×2 (08:51→20:13)
[2023-11-20 09:04] LABS: ALT (SGPT) 17 U/L (0-35); AST (SGOT) 27 U/L (14-36); Albumin 4.3 g/dl (3.5-5.0); Alkaline Phosphatase 57 U/L (38-126); Blood Urea Nitrogen 18 mg/dl (7-17); Calcium 9.5 mg/dl (8.4-10.2); Carbon Dioxide 26 mmol/L (22-30); Chloride 107 mmol/L (98-107); Estimated Creatinine Clearance 51 ml/min; Glucose 100 mg/dl (70-99); Potassium 4.3 mmol/L (3.5-5.1); Sodium 142 mmol/L (135-145); Total Bilirubin 0.9 mg/dl (0.2-1.3); Total Protein 6.4 g/dl (6.3-8.2); eGFR > 60.00
--- NOTE | 2023-11-20 09:52 | W.PN.HOSP.TC ---
Today's Communication/Plan
-
Neurology consult
Assessment / Plan
Assessment / Plan
Gen-AAOx3, NAD
HEENT-NC, AT, anicteric, clear oral mm
Neck-supple
CV-reg, no M, +S1/S2
Lungs-clear B/L
Abd-soft, NT, ND
Ext-no edema
Musculoskeletal-no cyanosis, clubbing
Skin-warm and dry
Neuro-grossly non-focal
Psych-calm, cooperative
Cognitive dysfunction -with memory impairment of recent onset. Did have a fall 6 weeks ago, sustaining a traumatic laceration to the scalp. No obvious metabolic etiology currently. No evidence of infection. CT head unremarkable. Neurology
consulted.
Unclear if current complaints are related to previous fall and postconcussion syndrome versus underlying worsening of cognitive dysfunction, likely dementia. Will need formal neurocognitive assessment after discharge.
Will discuss with neurology regarding brain MRI.
History of nephrolithiasis
History of SVT
Glaucoma
Anxiety disorder
Hyperlipidemia
Osteoporosis
DNR
PT/OT
Anticipated Discharge: Within 24 hours
Subjective/Interval History
-
Date of Service: November 20, 2023
Patient seen and examined. No complaints currently, denies headache.
Objective Data
-
Labs:
Laboratory Results
11/20/23
07:20
WBC 6.1
Hgb 12.9
Hct 39.6
Plt Count 218
Sodium 142
Potassium 4.3
Chloride 107
Carbon Dioxide 26
BUN 18 H
Creatinine 0.6
Glucose 100 H
Calcium 9.5
Total Bilirubin 0.9
AST 27
ALT 17
Alkaline Phosphatase 57
Vital Signs:
Vital Signs
Temp Pulse Resp BP Pulse Ox
97.7 F 87 16 131/75 97
11/20/23 07:35 11/20/23 07:35 11/20/23 07:35 11/20/23 07:35 11/20/23 07:35
Review of Systems
-
History Source: Patient
All other systems: Reviewed and negative
--- NOTE | 2023-11-20 14:26 | CON.NEURO4 ---
Consultation - Neurology 4
-
CONSULTING PHYSICIAN: Sonny Puckett MD(Neurology)
REFERRING PHYSICIAN: Hospitalist
DICTATED BY: Sonny Puckett MD
DATE/TIME OF REQUEST: 11/20/2023
DATE/TIME OF CONSULTATION: 11/20/2023, 1000
Reason for Consultation: AMS Memory loss
History of Present Illness:
This is a 88 year old right) handed female) who was admitted to the hospital with (chief complaint) confusion with memory impairment. She gives a h/o
kidney stones, diverticulitis, glaucoma, SVT, anxiety, who was brought in by her daughter for confusion. She was here 6 weeks ago after a slip and fall hitting her head. CT of her head revealed atrophy, minimal small vessel disease. Subsequently
she has had intermittent headaches and dizziness.
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 As per daughter Patient's memory has been relatively intact.
Patient denies blurry vision, difficulty speaking or swallowing, numbness or tingling, focal weakness.
She has difficulty walking which has not worsened following fall few weeks. Patient has had worsening cognitive decline over the past 6 months that was minimal which included difficulty handling her finances, misplacing items and difficulty with
using her smart phone.
No h/o strokes, LOC seizures. No hallucinations
Doesnt use cane or walker. Does not drive
Patient not having any sore throat, fevers or chills, cough, nausea vomiting, diarrhea, abdominal pain, urinary symptoms.
Past Medical History: As above
Surgical History: None
Family History: Dementia
Social History: lives alone does not drive
Allergies: See addendum
Home Medications: See addendum
Review of Symptoms:
Patient denies any fever, headache, chest pain, shortness of breath, GI or symptoms.
�Per the HPI.�All systems are reviewed negative except above.
�-
Vital Signs:
The patient has
Temp Pulse Resp BP Pulse Ox
36.6 C 74 16 137/70 95
11/20/23 11:30 11/20/23 11:30 11/20/23 11:30 11/20/23 11:30 11/20/23 11:30
Physical Exam:
The patient is afebrile, heart sounds S1 and S2 are (regular / irregular), and chest is clear to auscultation bilaterally.
- If not clear, describe.
Neurologic Examination:
The patient is awake, alert and oriented x person and place, month. She) is able to follow commands and answer questions appropriately. Speech is fluent with occasional word finding issues. There is no aphasia or dysarthria. Registration is intact
with poor recall, Reading and writing intact
On cranial nerve assessment, pupils are 3-4 mm bilateral, round and reactive to light and accommodation. Visual manuel are full. Extraocular movements are intact. Facial sensations are intact and bilaterally symmetrical, there is no facial
asymmetry. Hearing is intact bilaterally to normal conversation volume. Tongue palate and uvula are midline. Sternocleidomastoid strengths are full bilaterally. Motor strengths are 5/5 bilateral upper and lower extremities on medical research
[place] scale. There is no drift or involuntary movement noted.
Deep tendon reflexes are + bilateral upper and lower extremities and Babinski is absent bilaterally.
Sensations of pain, touch, temperature and vibration are intact and bilaterally symmetrical. There was no extinction noted on double simultaneous stimulation. Coordination is intact by finger to nose bilaterally. Rombergs +. Gait assisted
Lab Results: Addendum
Neuro Imaging: CT head Atrophy. Small vessel disease. Mild ventricular enlargement
Impression:
(Ms.) SUZI MARCIAL is a 88 year old F who has presented to the hospital with (symptoms/chief complaint) of confusion and memory loss.
Differentials for the patient's presentation include:
1. Post concussive syndrome
2. Transient Global amnesia
3. Dementia
Patient has the following risk factors for their symptoms: Closed head injury
Recommendations:
1. MRI Head
2. B12
3. PT/OT
Discussed patient care with: Hospitalist
Allergies
-
Allergies
Allergy/AdvReac Type Severity Reaction Status Date / Time
Antihistamines - Alkylamine Allergy .rapid Verified 11/19/23 08:49
heart rate
diphenhydramine Allergy Dizziness Verified 11/19/23 08:49
[From Benadryl]
gabapentin Allergy Dizziness, Verified 11/19/23 08:49
confusion
hydrocodone [From Vicodin] Allergy Rapid Verified 11/19/23 08:49
heart rate
iodine [Iodine] Allergy Nausea / Verified 11/19/23 08:49
Vomiting,
rash
mirabegron [From Myrbetriq] Allergy Intensified Verified 11/19/23 08:49
pain
morphine [Morphine] Allergy vomiting,di Verified 11/19/23 08:49
zziness
Sulfa (Sulfonamide Allergy Hives Verified 11/19/23 08:49
Antibiotics)
tramadol Allergy nausea, Verified 11/19/23 08:49
vomiting,
palpitations
Vital Signs and Labs
-
Vital Signs and Labs:
Vital Signs
Temp Pulse Resp BP Pulse Ox
36.6 C 74 16 137/70 95
11/20/23 11:30 11/20/23 11:30 11/20/23 11:30 11/20/23 11:30 11/20/23 11:30
Lab Results
11/20/23 07:20
11/20/23 07:20
Sodium 142 mmol/L (135-145) 11/20/23 07:20
Potassium 4.3 mmol/L (3.5-5.1) 11/20/23 07:20
BUN 18 mg/dl (7-17) H 11/20/23 07:20
Glucose 100 mg/dl (70-99) H 11/20/23 07:20
Calcium 9.5 mg/dl (8.4-10.2) 11/20/23 07:20
Medications
-
Active Medications
Generic Name Dose Route Start Last Admin
Trade Name Freq PRN Reason Stop Dose Admin
Acetaminophen 650 mg 11/19/23 14:28
Acetaminophen 325 Mg Tablet PO 12/17/23 14:27
Q4HPRN PRN
mild pain/SOLORIO/temp> 100.4F
Atenolol 37.5 mg 11/19/23 20:00 11/20/23 08:51
Atenolol 25 Mg Tablet PO 12/17/23 19:59 37.5 mg
BID VENITA Administration
Carboxymethylcellulose Sodium 0 drops 11/19/23 18:00 11/20/23 12:49
Carboxymethylcellulose Ophth Gel (Celluvisc) Droperette BOTH EYES 12/17/23 17:59 Not Given
QID VENITA
Docusate Sodium 100 mg 11/19/23 22:00 11/19/23 21:43
Docusate Sodium 100 Mg Capsule PO 12/17/23 21:59 100 mg
HS VENITA Administration
Multivitamins Therapeutic 1 tablet 11/20/23 08:00 11/20/23 08:51
Multivitamin Tablet PO 12/18/23 07:59 1 tablet
DAILY VENITA Administration
Rosuvastatin Calcium 5 mg 11/20/23 08:00 11/20/23 08:51
Rosuvastatin (Crestor) 5 Mg Tablet PO 12/18/23 07:59 5 mg
DAILY VENITA Administration
Sodium Chloride 0 flush 11/19/23 15:00
Sodium Chloride 0.9% (Flush) Syringe IV 12/17/23 14:59
PER PROTOCOL VENITA
Home Medications
�Medication �Instructions �Recorded
biotin 1 mg tablet 1 mg PO DAILY Supplement 03/24/10
omega 7-ovb-cgp-fish oil 1,000 mg 1,000 mg PO DAILY Supplement 03/24/10
(120 mg-180 mg) capsule (Fish Oil)
atenolol 25 mg tablet 37.5 mg PO BID Arrhythmia 08/29/20
lorazepam 0.5 mg tablet 0.5 mg PO BID Mental Health/Anxiety 08/29/20
rosuvastatin 5 mg tablet 5 mg PO DAILY High Cholesterol ##0 08/29/20
therapeutic multivitamin 1 tab PO DAILY Supplement ##0 08/29/20
coenzyme Q10 200 mg capsule (Co 200 mg PO DAILY Supplement 02/10/22
Q-10)
denosumab 60 mg/mL subcutaneous 60 mg SC [id number] osteoperosis 02/19/22
syringe (Prolia)
carboxymethylcellulose sodium 0.25 1 drp BOTH EYES QID Eye Condition 11/19/23
% eye drops (TheraTears)
docusate sodium 100 mg capsule 100 mg PO HS Constipation 11/19/23
--- NOTE | 2023-11-20 14:47 | CM ---
Addendum entered by Khushbu Dean 11/20/23 15:25:
OBS/Alvarez form completed and signed form placed on chart
Original Note:
Patient seen at bedside with patient daughter. Patient lives alone per daughter. Patient PCP is Dr. Morales and she uses the [facility] in [place]. Patient pending for MRI. Patient stated that it is a first floor apartment and she has a walker and shower
chair. Patient daughter was given OBS/ALVAREZ to review and sign. CM will continue to follow for discharge planning needs.
Plan; home with VN vs SNF; pending medical treatment plan
[2023-11-20] MEDS: REFRESH CELLUVISC GEL 1 DROPS BOTH EYES (17:53)
[2023-11-20] MEDS: COLACE PO (21:04)
[2023-11-21 02:43] VITALS: BP 124/55
[2023-11-21] MEDS: TENORMIN 37.5 MG PO ×2 (08:00→19:53)
[2023-11-21] MEDS: REFRESH CELLUVISC GEL 1 DROPS BOTH EYES ×3 (08:01→17:25)
[2023-11-21] MEDS: THERAGRAN 1 TABLET PO (08:01)
[2023-11-21] MEDS: CRESTOR 5 MG PO (08:01)
[2023-11-21 08:37] VITALS: BP 127/65
--- NOTE | 2023-11-21 09:08 | W.PN.HOSP.TC ---
Today's Communication/Plan
-
MRI of the brain. PT OT. Neurology consult.
Assessment / Plan
Assessment / Plan
Gen-AAOx3, NAD
HEENT-NC, AT, anicteric, clear oral mm
Neck-supple
CV-reg, no M, +S1/S2
Lungs-clear B/L
Abd-soft, NT, ND
Ext-no edema
Musculoskeletal-no cyanosis, clubbing
Skin-warm and dry
Neuro-grossly non-focal
Psych-calm, cooperative
A/P:
Cognitive dysfunction -with memory impairment of recent onset-suspicion for Lewy body disease. Recent TBI with postconcussion symptoms, resolved. Neurology consult. Plan for MRI of the brain. Discussed with daughter at bedside.
History of nephrolithiasis
History of SVT
Glaucoma
Anxiety disorder
Hyperlipidemia
Osteoporosis
DNR
PT/OT
Anticipated Discharge: Within 24 hours
Subjective/Interval History
-
Date of Service: November 21, 2023
Patient alert with pleasantly disoriented also some cognitive deficits.
Objective Data
-
Vital Signs:
Vital Signs
Temp Pulse Resp BP Pulse Ox
98 F 76 16 127/65 98
11/21/23 08:37 11/21/23 08:37 11/21/23 08:37 11/21/23 08:37 11/21/23 08:37
I&O
11/20/23 11/21/23 11/22/23
06:59 06:59 06:59
Intake Total 480 / 480
Balance 480 / 480
[2023-11-21 10:13] VITALS: BP 141/76; PULSE 58; O2SAT 99
--- NOTE | 2023-11-21 11:08 | CON.NEURO ---
Consultation
Order
Date of Consultation: 11/21/23
Requesting Provider: Udaybhanu. Betina Anderson
Reason for Consult: Encephalopathy
CC: none
HPI: This is an 88-year-old woman who presented to [facility] on November 19, 2023 with encephalopathy.
According to patient's daughter, Ms. oJy has had repeated confusion about dates and events. On 11/18/2023, she mistakenly believed she had a hair appointment and that her caustic purification operator Zandra, that she has been with for several months is not
available to give her a ride (off note-Zandra was not expected to work that day). She called her daughter multiple times to confirm, despite being informed it was scheduled for the following Tuesday. The confusion persisted into Tuesday morning
when she called about a birthday democrat that is actually three weeks away.
The patient receives her medications from [facility], which are automatically refilled. She takes them from a box, but there is no confirmation if she consistently takes them as prescribed. There is a history of her seeing someone trying to break into her
apartment six or seven months ago, which was dismissed as a possible dream.
She frequently forgets her bank account password, despite having it written down, and often locks herself out. She uses a smartphone for communication and a computer for email but feels overwhelmed by spam.
Ms. Joy sustained an unwitnessed fall with head trauma on September 08, 2023.
She recalls opening her trunk to get groceries, lost balance, and hit the back of her head on the driveway. It is unclear how long she was down but she later found sitting at the table overed with blood. She states that the headache that she
developed post fall has nearly resolved.
Ms. Londono has had imbalance and a weaker left leg for unspecified time, which she believes started before her spinal surgery. No reports of sensory deficits, radicular back pain sphincter dysfunction.
ER VS: 127/65, 76, afebrile.
PDMP:Lorazepam 0.5 Mg 60 tabs filled in on 08/11/2023, 09/13/2023, 10/25/2023.
Labs: Glucose�165, normal WBCs, sodium, creatinine, urinalysis, TSH, vitamin B12�pending.
EKG-NSR
CT head (11/19/2023)�no acute abnormalities, bilateral frontal temporal atrophy.
Brain MRI wo marla(05/17/2026) done for headache-showed moderate atrophy
PMH: PSVT, DLP, osteoporosis MARLA, Colonic diverticulosis, nephrolithiasis, Lichen sclerosis
PSH: partial colectomy, left L4-L5 ILESI( 08/21/2020), L3-L4 laminectomy; LASIK
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
All: Sulfa, tramadol, morphine, Myrbetriq, iodine, Vicodin, gabapentin, Benadryl, antihistamines
ROS:Constitutional: Negative. Negative for chills, fever
HENT: Negative for ear pain, hearing loss, tinnitus and trouble swallowing.
Eyes: Negative. Negative for photophobia, pain and visual disturbance.
Respiratory: Negative for cough, choking and shortness of breath.
Cardiovascular: Negative for chest pain, palpitations and leg swelling.
Gastrointestinal: Negative for abdominal pain and vomiting.
Endocrine: Negative. Negative for cold intolerance.
Genitourinary: Positive for urinary incontinence
Musculoskeletal: Negative for back pain, gait problem, neck pain and neck stiffness.
Skin: Negative for rash.
Allergic/Immunologic: Negative. Negative for immunocompromised state.
Neurological: Positive for cognitive decline and episodic headaches(improving) and imbalance, left leg weakness
Psychiatric/Behavioral: Positive for insomnia
General: Well developed. In no acute distress.
Cardio: Regular rate and rhythm. Extremities are without cyanosis or edema.
Neuro:
Mental Status: Alert, oriented to name, president, not to month, date, year. Expressive greater than receptive dysphasia. Nonfluent.
Cranial Nerves: Pupils are equally round and reactive to light. EOMs full, except for limited upgaze. Visual manuel full to confrontation. No ptosis. No nystagmus. V1-V3 intact to light touch and pinprick bilaterally, symmetric. Face
symmetric. Normal hearing AU. The palate elevated well. SCMs and traps 5/5. Tongue midline. No dysarthria.
Motor: Normal bulk and tone. No pronator or arm drift. Strength 5/5 throughout, except for left hip flexion and knee extension 4+/5. No clonus.
Reflexes: grasp positive BL.
Sensory: No clear sensory deficits in lower extremities
Coordination: No dysmetria or tremor.
Gait: normal base, stance, short stride(limited exam)
Assessment and Plan:
I. Suspected Lewy body disease
II. Ambulatory dysfunction
III. Chronic LS poly radiculopathy
-Fall precautions
-Medication administration supervision
-Avoid COAL PULVERIZING OPERATOR suppressants and dopamine blocking agent
-PT
-Outpatient EEG
-Please follow-up vitamin B12 level
-Outpatient neuropsychological evaluate
-Outpatient neurology follow-up in 1-2 weeks
I personally reviewed all radiology and labs along with past medical records pertinent to current medical problems. Total time spent in patient care is 60 minutes.
Thank you for allowing us to participate in the care of this patient. We will continue to follow. Please do not hesitate to contact us with any questions or concerns.
Subjective/Objective
Subjective Data
Date of Service: November 21, 2023
Objective Data
Vital Signs
Temp Pulse Resp BP Pulse Ox
36.6 C 76 16 127/65 98
11/21/23 08:37 11/21/23 08:37 11/21/23 08:37 11/21/23 08:37 11/21/23 08:37
Lab Results
11/20/23 07:20
11/20/23 07:20
Sodium 142 mmol/L (135-145) 11/20/23 07:20
Potassium 4.3 mmol/L (3.5-5.1) 11/20/23 07:20
BUN 18 mg/dl (7-17) H 11/20/23 07:20
Glucose 100 mg/dl (70-99) H 11/20/23 07:20
Calcium 9.5 mg/dl (8.4-10.2) 11/20/23 07:20
Patient Allergies
Antihistamines - Alkylamine Allergy (Verified 11/19/23 08:49)
.rapid heart rate
diphenhydramine [From Benadryl] Allergy (Verified 11/19/23 08:49)
Dizziness
gabapentin Allergy (Verified 11/19/23 08:49)
Dizziness, confusion
hydrocodone [From Vicodin] Allergy (Verified 11/19/23 08:49)
Rapid heart rate
iodine [Iodine] Allergy (Verified 11/19/23 08:49)
Nausea / Vomiting, rash
mirabegron [From Myrbetriq] Allergy (Verified 11/19/23 08:49)
Intensified pain
morphine [Morphine] Allergy (Verified 11/19/23 08:49)
vomiting,dizziness
Sulfa (Sulfonamide Antibiotics) Allergy (Verified 11/19/23 08:49)
Hives
tramadol Allergy (Verified 11/19/23 08:49)
nausea, vomiting, palpitations
Medications
-
Active Medications
Generic Name Dose Route Start Last Admin
Trade Name Freq PRN Reason Stop Dose Admin
Acetaminophen 650 mg 11/19/23 14:28
Acetaminophen 325 Mg Tablet PO 12/17/23 14:27
Q4HPRN PRN
mild pain/SOLORIO/temp> 100.4F
Atenolol 37.5 mg 11/19/23 20:00 11/21/23 08:00
Atenolol 25 Mg Tablet PO 12/17/23 19:59 37.5 mg
BID VENITA Administration
Carboxymethylcellulose Sodium 0 drops 11/19/23 18:00 11/21/23 08:01
Carboxymethylcellulose Ophth Gel (Celluvisc) Droperette BOTH EYES 12/17/23 17:59 1 drops
QID VENITA Administration
Docusate Sodium 100 mg 11/19/23 22:00 11/20/23 21:04
Docusate Sodium 100 Mg Capsule PO 12/17/23 21:59 Not Given
HS VENITA
Multivitamins Therapeutic 1 tablet 11/20/23 08:00 11/21/23 08:01
Multivitamin Tablet PO 12/18/23 07:59 1 tablet
DAILY VENITA Administration
Rosuvastatin Calcium 5 mg 11/20/23 08:00 11/21/23 08:01
Rosuvastatin (Crestor) 5 Mg Tablet PO 12/18/23 07:59 5 mg
DAILY VENITA Administration
Sodium Chloride 0 flush 11/19/23 15:00
Sodium Chloride 0.9% (Flush) Syringe IV 12/17/23 14:59
PER PROTOCOL VENITA
Home Medications
�Medication �Instructions �Recorded
biotin 1 mg tablet 1 mg PO DAILY Supplement 03/24/10
omega 3-lon-lld-fish oil 1,000 mg 1,000 mg PO DAILY Supplement 03/24/10
(120 mg-180 mg) capsule (Fish Oil)
atenolol 25 mg tablet 37.5 mg PO BID Arrhythmia 08/29/20
lorazepam 0.5 mg tablet 0.5 mg PO BID Mental Health/Anxiety 08/29/20
rosuvastatin 5 mg tablet 5 mg PO DAILY High Cholesterol ##0 08/29/20
therapeutic multivitamin 1 tab PO DAILY Supplement ##0 08/29/20
coenzyme Q10 200 mg capsule (Co 200 mg PO DAILY Supplement 02/10/22
Q-10)
denosumab 60 mg/mL subcutaneous 60 mg SC [id number] osteoperosis 02/19/22
syringe (Prolia)
carboxymethylcellulose sodium 0.25 1 drp BOTH EYES QID Eye Condition 11/19/23
% eye drops (TheraTears)
docusate sodium 100 mg capsule 100 mg PO HS Constipation 11/19/23
Medications
-
Medications:
Generic Name Dose Route Start Last Admin
Trade Name Freq PRN Reason Stop Dose Admin
Acetaminophen 650 mg 11/19/23 14:28
Acetaminophen 325 Mg Tablet PO 12/17/23 14:27
Q4HPRN PRN
mild pain/SOLORIO/temp> 100.4F
Atenolol 37.5 mg 11/19/23 20:00 11/21/23 08:00
Atenolol 25 Mg Tablet PO 12/17/23 19:59 37.5 mg
BID VENITA Administration
Carboxymethylcellulose Sodium 0 drops 11/19/23 18:00 11/21/23 08:01
Carboxymethylcellulose Ophth Gel (Celluvisc) Droperette BOTH EYES 12/17/23 17:59 1 drops
QID VENITA Administration
Docusate Sodium 100 mg 11/19/23 22:00 11/20/23 21:04
Docusate Sodium 100 Mg Capsule PO 12/17/23 21:59 Not Given
HS VENITA
Multivitamins Therapeutic 1 tablet 11/20/23 08:00 11/21/23 08:01
Multivitamin Tablet PO 12/18/23 07:59 1 tablet
DAILY VENITA Administration
Rosuvastatin Calcium 5 mg 11/20/23 08:00 11/21/23 08:01
Rosuvastatin (Crestor) 5 Mg Tablet PO 12/18/23 07:59 5 mg
DAILY VENITA Administration
Sodium Chloride 0 flush 11/19/23 15:00
Sodium Chloride 0.9% (Flush) Syringe IV 12/17/23 14:59
PER PROTOCOL VENITA
Home Medications
-
Home Medications
biotin 1 mg tablet 1 mg PO DAILY Supplement 01/25/11
omega 8-zwb-lrh-fish oil 1,000 mg (120 mg-180 mg) capsule (Fish Oil) 1,000 mg PO DAILY Supplement 03/24/10
atenolol 25 mg tablet 37.5 mg PO BID Arrhythmia 08/29/20
lorazepam 0.5 mg tablet 0.5 mg PO BID Mental Health/Anxiety 08/29/20
rosuvastatin 5 mg tablet 5 mg PO DAILY High Cholesterol ##0 08/29/20
therapeutic multivitamin 1 tab PO DAILY Supplement ##0 08/29/20
coenzyme Q10 200 mg capsule (Co Q-10) 200 mg PO DAILY Supplement 02/10/22
denosumab 60 mg/mL subcutaneous syringe (Prolia) 60 mg SC [id number] osteoperosis 02/19/22
carboxymethylcellulose sodium 0.25 % eye drops (TheraTears) 1 drp BOTH EYES QID Eye Condition 11/19/23
docusate sodium 100 mg capsule 100 mg PO HS Constipation 11/19/23
Vital Signs and Labs
-
Vital Signs and Labs:
Vital Signs
Temp Pulse Resp BP Pulse Ox
36.6 C 76 16 127/65 98
11/21/23 08:37 11/21/23 08:37 11/21/23 08:37 11/21/23 08:37 11/21/23 08:37
Lab Results
11/20/23 07:20
11/20/23 07:20
Sodium 142 mmol/L (135-145) 11/20/23 07:20
Potassium 4.3 mmol/L (3.5-5.1) 11/20/23 07:20
BUN 18 mg/dl (7-17) H 11/20/23 07:20
Glucose 100 mg/dl (70-99) H 11/20/23 07:20
Calcium 9.5 mg/dl (8.4-10.2) 11/20/23 07:20
[2023-11-21 14:53] LABS: Vitamin B12 906 pg/ml (239-931)
[2023-11-21 16:36] VITALS: BP 118/63
[2023-11-21 19:28] VITALS: BP 122/71
[2023-11-21] MEDS: COLACE 100 MG PO (19:53)
[2023-11-21] MEDS: REFRESH CELLUVISC GEL BOTH EYES (22:15)
[2023-11-21 23:20] VITALS: BP 137/78
[2023-11-22] VITALS (7 sets, daily range): BP systolic 115–167; BP diastolic 47–107; PULSE 70
--- NOTE | 2023-11-22 08:50 | W.PN.HOSP.TC ---
Today's Communication/Plan
-
Discharge planning in progress.
Assessment / Plan
Assessment / Plan
Gen-AAOx3, NAD
HEENT-NC, AT, anicteric, clear oral mm
Neck-supple
CV-reg, no M, +S1/S2
Lungs-clear B/L
Abd-soft, NT, ND
Ext-no edema
Musculoskeletal-no cyanosis, clubbing
Skin-warm and dry
Neuro-grossly non-focal
Psych-calm, cooperative
A/P:
Cognitive dysfunction -with memory impairment of recent onset-suspicion for Lewy body disease. Recent TBI with postconcussion symptoms, resolved. Neurology consult appreciated. MRI of the brain no acute pathology but chronic abnormalities.
Discussed with daughter at bedside again today on 11/21 and agreeable to SNF. data analysis manager for discharge disposition. Discussed with RN today.
History of nephrolithiasis
History of SVT
Glaucoma
Anxiety disorder
Hyperlipidemia
Osteoporosis
DNR
PT/OT
Anticipated Discharge: Within 24 hours
Subjective/Interval History
-
Date of Service: November 22, 2023
Patient feels slightly better today. Still some confusion on and off.
Objective Data
-
Vital Signs:
Vital Signs
Temp Pulse Resp BP Pulse Ox
98.2 F 62 16 137/66 98
11/22/23 07:20 11/22/23 07:20 11/22/23 07:20 11/22/23 07:20 11/22/23 07:20
I&O
11/21/23 11/22/23 11/23/23
06:59 06:59 06:59
Intake Total 480 / 480 840 / 840
Balance 480 / 480 840 / 840
[2023-11-22] MEDS: TENORMIN 37.5 MG PO ×2 (09:28→20:12)
[2023-11-22] MEDS: CRESTOR 5 MG PO (09:28)
[2023-11-22] MEDS: THERAGRAN 1 TABLET PO (09:28)
[2023-11-22] MEDS: REFRESH CELLUVISC GEL 1 DROPS BOTH EYES ×4 (09:29→23:01)
[2023-11-22] MEDS: TYLENOL 650 MG PO (09:44)
--- NOTE | 2023-11-22 18:05 | W.PN.NEURO.1 ---
Today's Communication / Plan
-
.
Subjective/Objective
Subjective Data
Date of Service: November 22, 2023
Neurology follow-up note.
reports no complaints. She has been normotensive and afebrile.
Brain MRI showed no acute infarcts.
PMH: PSVT, DLP, osteoporosis MARLA, Colonic diverticulosis, nephrolithiasis, Lichen sclerosis
PSH: partial colectomy, left L4-L5 ILESI( 08/21/2020), L3-L4 laminectomy; LASIK
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
All: Sulfa, tramadol, morphine, Myrbetriq, iodine, Vicodin, gabapentin, Benadryl, antihistamines
ROS:Constitutional: Negative. Negative for chills, fever
HENT: Negative for ear pain, hearing loss, tinnitus and trouble swallowing.
Eyes: Negative. Negative for photophobia, pain and visual disturbance.
Respiratory: Negative for cough, choking and shortness of breath.
Cardiovascular: Negative for chest pain, palpitations and leg swelling.
Gastrointestinal: Negative for abdominal pain and vomiting.
Endocrine: Negative. Negative for cold intolerance.
Genitourinary: Positive for urinary incontinence
Musculoskeletal: Negative for back pain, gait problem, neck pain and neck stiffness.
Skin: Negative for rash.
Allergic/Immunologic: Negative. Negative for immunocompromised state.
Neurological: Positive for cognitive decline and episodic headaches(improving) and imbalance, left leg weakness
Psychiatric/Behavioral: Positive for insomnia
General: Well developed. In no acute distress.
Cardio: Regular rate. Extremities are without cyanosis or edema.
Neuro:
Mental Status: Alert, oriented to name, not to her age, month, season, year. Expressive greater than receptive dysphasia. Nonfluent.
Cranial Nerves: Pupils are equally round and reactive to light. EOMs full, except for limited upgaze. Visual manuel full to confrontation. No ptosis. No nystagmus. V1-V3 intact to light touch and pinprick bilaterally, symmetric. Face
symmetric. Normal hearing AU. The palate elevated well. SCMs and traps 5/5. Tongue midline. No dysarthria.
Motor: Normal bulk and tone. No pronator or arm drift. Strength 5/5 throughout, except for left hip flexion and knee extension 4+/5. No clonus.
Reflexes: grasp positive BL.
Sensory: No clear sensory deficits in lower extremities
Coordination: No dysmetria or tremor.
Gait: normal base, stance, short stride(limited exam)
Assessment and Plan:
I. 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
II. Ambulatory dysfunction
III. Chronic LS poly radiculopathy
-Fall precautions
-Avoid HARNESS BRUSHER suppressants and dopamine blocking agent
-PT
-Outpatient neuropsychological evaluate
-Outpatient neurology follow-up in 1-2 weeks
-The case was discussed with patient's daughter. All questions were answered.
I personally reviewed all radiology and labs along with past medical records pertinent to current medical problems. Total time spent in patient care is 35 minutes.
Thank you for allowing us to participate in the care of this patient. We will continue to follow. Please do not hesitate to contact us with any questions or concerns.
Objective Data
Vital Signs
Temp Pulse Resp BP Pulse Ox
36.8 C 61 16 115/47 95
11/22/23 15:13 11/22/23 15:13 11/22/23 15:13 11/22/23 15:13 11/22/23 15:13
Lab Results
11/20/23 07:20
11/20/23 07:20
Sodium 142 mmol/L (135-145) 11/20/23 07:20
Potassium 4.3 mmol/L (3.5-5.1) 11/20/23 07:20
BUN 18 mg/dl (7-17) H 11/20/23 07:20
Glucose 100 mg/dl (70-99) H 11/20/23 07:20
Calcium 9.5 mg/dl (8.4-10.2) 11/20/23 07:20
Vitamin B12 906 pg/ml (239-931) 11/19/23 09:00
Patient Allergies
Antihistamines - Alkylamine Allergy (Verified 11/19/23 08:49)
.rapid heart rate
diphenhydramine [From Benadryl] Allergy (Verified 11/19/23 08:49)
Dizziness
gabapentin Allergy (Verified 11/19/23 08:49)
Dizziness, confusion
hydrocodone [From Vicodin] Allergy (Verified 11/19/23 08:49)
Rapid heart rate
iodine [Iodine] Allergy (Verified 11/19/23 08:49)
Nausea / Vomiting, rash
mirabegron [From Myrbetriq] Allergy (Verified 11/19/23 08:49)
Intensified pain
morphine [Morphine] Allergy (Verified 11/19/23 08:49)
vomiting,dizziness
Sulfa (Sulfonamide Antibiotics) Allergy (Verified 11/19/23 08:49)
Hives
tramadol Allergy (Verified 11/19/23 08:49)
nausea, vomiting, palpitations
Vital Signs and Labs
-
Vital Signs and Labs:
Vital Signs
Temp Pulse Resp BP Pulse Ox
36.8 C 61 16 115/47 95
11/22/23 15:13 11/22/23 15:13 11/22/23 15:13 11/22/23 15:13 11/22/23 15:13
Lab Results
11/20/23 07:20
11/20/23 07:20
Sodium 142 mmol/L (135-145) 11/20/23 07:20
Potassium 4.3 mmol/L (3.5-5.1) 11/20/23 07:20
BUN 18 mg/dl (7-17) H 11/20/23 07:20
Glucose 100 mg/dl (70-99) H 11/20/23 07:20
Calcium 9.5 mg/dl (8.4-10.2) 11/20/23 07:20
Vitamin B12 906 pg/ml (067-291) 11/19/23 09:00
Medications
-
Medications:
Generic Name Dose Route Start Last Admin
Trade Name Freq PRN Reason Stop Dose Admin
Acetaminophen 650 mg 11/19/23 14:28 11/22/23 09:44
Acetaminophen 325 Mg Tablet PO 12/17/23 14:27 650 mg
Q4HPRN PRN Administration
mild pain/SOLORIO/temp> 100.4F
Atenolol 37.5 mg 11/19/23 20:00 11/22/23 09:28
Atenolol 25 Mg Tablet PO 12/17/23 19:59 37.5 mg
BID VENITA Administration
Carboxymethylcellulose Sodium 0 drops 11/19/23 18:00 11/22/23 17:13
Carboxymethylcellulose Ophth Gel (Celluvisc) Droperette BOTH EYES 12/17/23 17:59 1 drops
QID VENITA Administration
Docusate Sodium 100 mg 11/19/23 22:00 11/21/23 19:53
Docusate Sodium 100 Mg Capsule PO 12/17/23 21:59 100 mg
HS VENITA Administration
Multivitamins Therapeutic 1 tablet 11/20/23 08:00 11/22/23 09:28
Multivitamin Tablet PO 12/18/23 07:59 1 tablet
DAILY VENITA Administration
Rosuvastatin Calcium 5 mg 11/20/23 08:00 11/22/23 09:28
Rosuvastatin (Crestor) 5 Mg Tablet PO 12/18/23 07:59 5 mg
DAILY VENITA Administration
Sodium Chloride 0 flush 11/19/23 15:00
Sodium Chloride 0.9% (Flush) Syringe IV 12/17/23 14:59
PER PROTOCOL VENITA
Home Medications
-
Home Medications
biotin 1 mg tablet 1 mg PO DAILY Supplement 03/24/10
omega 0-txb-ijj-fish oil 1,000 mg (120 mg-180 mg) capsule (Fish Oil) 1,000 mg PO DAILY Supplement 03/24/10
atenolol 25 mg tablet 37.5 mg PO BID Arrhythmia 08/29/20
lorazepam 0.5 mg tablet 0.5 mg PO BID Mental Health/Anxiety 08/29/20
rosuvastatin 5 mg tablet 5 mg PO DAILY High Cholesterol ##0 08/29/20
therapeutic multivitamin 1 tab PO DAILY Supplement ##0 08/29/20
coenzyme Q10 200 mg capsule (Co Q-10) 200 mg PO DAILY Supplement 02/10/22
denosumab 60 mg/mL subcutaneous syringe (Prolia) 60 mg SC [id number] osteoperosis 02/19/22
carboxymethylcellulose sodium 0.25 % eye drops (TheraTears) 1 drp BOTH EYES QID Eye Condition 11/19/23
docusate sodium 100 mg capsule 100 mg PO HS Constipation 11/19/23
[2023-11-22] MEDS: COLACE PO (20:25)
[2023-11-23 03:22] VITALS: BP 147/74
[2023-11-23 07:25] VITALS: BP 116/78
--- NOTE | 2023-11-23 09:31 | W.PN.HOSP.TC ---
Today's Communication/Plan
-
Start Seroquel.
Assessment / Plan
Assessment / Plan
Gen-AAOx3, NAD
HEENT-NC, AT, anicteric, clear oral mm
Neck-supple
CV-reg, no M, +S1/S2
Lungs-clear B/L
Abd-soft, NT, ND
Ext-no edema
Musculoskeletal-no cyanosis, clubbing
Skin-warm and dry
Neuro-grossly non-focal
Psych-calm, cooperative
A/P:
Cognitive dysfunction -with memory impairment of recent onset-suspicion for Lewy body disease versus Alzheimer's dementia. Recent TBI with postconcussion symptoms, resolved. Neurology consult appreciated. MRI of the brain no acute pathology but
chronic abnormalities. Discussed with daughter at bedside again today on 11/21 and agreeable to SNF. microbiology manager for discharge disposition. Discussed with RN today. Neurology reevaluated patient yesterday on 11/21 and discussed with family at
bedside. Will initiate low-dose of Seroquel 25 mg to see if it helps of sleep-wake cycle and some of her delirium as well. Monitor for any side effects. Discussed with case folder. Discussed with daughter again today on 11/22.
Chronic LS polyradiculopathy and ambulatory dysfunction-PT OT eval.
History of nephrolithiasis
History of SVT
Glaucoma
Anxiety disorder
Hyperlipidemia
Osteoporosis
DNR
PT/OT
Anticipated Discharge: > 48 hours
Subjective/Interval History
-
Date of Service: November 23, 2023
Patient seen and examined.
Objective Data
-
Vital Signs:
Vital Signs
Temp Pulse Resp BP Pulse Ox
97.7 F 95 16 116/78 99
11/23/23 07:25 11/23/23 07:25 11/23/23 07:25 11/23/23 07:25 11/23/23 07:25
I&O
11/22/23 11/23/23 11/24/23
06:59 06:59 06:59
Intake Total 840 / 840 840 / 840
Balance 840 / 840 840 / 840
[2023-11-23] MEDS: REFRESH CELLUVISC GEL 1 DROPS BOTH EYES ×4 (09:52→21:09)
[2023-11-23] MEDS: TENORMIN 37.5 MG PO ×2 (09:52→19:36)
[2023-11-23] MEDS: THERAGRAN 1 TABLET PO (09:52)
[2023-11-23] MEDS: CRESTOR 5 MG PO (09:53)
[2023-11-23 11:11] VITALS: BP 119/61
[2023-11-23 15:47] VITALS: BP 124/69
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
--- NOTE | 2023-11-23 18:21 | PTCARENOTE ---
Patient continuously getting up out of chair and not ringing parikh. She is confused to time and place and having irrational conversation. Patient not able to be reoriented. Diversion activities attempted without success. Rehan zavala obtained.
[2023-11-23] MEDS: SEROQUEL 25 MG PO (21:09)
[2023-11-23] MEDS: COLACE PO (21:11)
[2023-11-23 23:53] VITALS: BP 157/75
[2023-11-24 07:26] VITALS: BP 135/53
[2023-11-24] MEDS: TENORMIN 37.5 MG PO ×2 (07:37→20:51)
[2023-11-24] MEDS: CRESTOR 5 MG PO (07:37)
[2023-11-24] MEDS: REFRESH CELLUVISC GEL 1 DROPS BOTH EYES ×4 (07:38→21:41)
[2023-11-24] MEDS: THERAGRAN 1 TABLET PO (07:38)
--- NOTE | 2023-11-24 09:40 | W.PN.HOSP.TC ---
Today's Communication/Plan
-
Seroquel.
Assessment / Plan
Assessment / Plan
Gen-AAOx3, NAD
HEENT-NC, AT, anicteric, clear oral mm
Neck-supple
CV-reg, no M, +S1/S2
Lungs-clear B/L
Abd-soft, NT, ND
Ext-no edema
Musculoskeletal-no cyanosis, clubbing
Skin-warm and dry
Neuro-grossly non-focal
Psych-calm, cooperative
A/P:
Cognitive dysfunction -with memory impairment of recent onset-suspicion for Lewy body disease versus Alzheimer's dementia. Recent TBI with postconcussion symptoms, resolved. Neurology consult appreciated. MRI of the brain no acute pathology but
chronic abnormalities. Discussed with daughter at bedside again today on 11/21 and agreeable to SNF. manager program management for discharge disposition. Discussed with RN today. Neurology reevaluated patient yesterday on 11/21 and discussed with family at
bedside. Initiated low-dose of Seroquel 25 mg to see if it helps of sleep-wake cycle and some of her delirium as well. Monitor for any side effects. Discussed with renal case manager. Discussed with daughter yesterday.
Chronic LS polyradiculopathy and ambulatory dysfunction-PT OT eval.
History of nephrolithiasis
History of SVT
Glaucoma
Anxiety disorder
Hyperlipidemia
Osteoporosis
DNR
PT/OT
Anticipated Discharge: 24 - 48 hours
Subjective/Interval History
-
Date of Service: November 24, 2023
Patient was able to sleep some last night. Afebrile. Alert still confused but some improvement.
Objective Data
-
Vital Signs:
Vital Signs
Temp Pulse Resp BP Pulse Ox
98.4 F 61 20 135/53 96
11/24/23 07:26 11/24/23 07:26 11/24/23 07:26 11/24/23 07:26 11/24/23 07:26
I&O
11/23/23 11/24/23 11/25/23
06:59 06:59 06:59
Intake Total 840 / 840 1200 / 1200
Balance 840 / 840 1200 / 1200
[2023-11-24 10:42] VITALS: BP 135/53; PULSE 61
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
[2023-11-24 15:05] VITALS: BP 171/71
--- NOTE | 2023-11-24 18:01 | CM ---
Late in the day today pt's daughter visited and advised that she has hired 24/7 caregivers from [employer] and would like her mother to return home tomorrow afternoon. She asked about a hospital bed which I advised we could try to order, but it
would not be delivered until Tuesday at the earliest. She will follow up with CM in am.
[2023-11-24] MEDS: SEROQUEL 25 MG PO (21:41)
[2023-11-24] MEDS: COLACE 100 MG PO (21:42)
[2023-11-24 23:25] VITALS: BP 129/65
[2023-11-25 07:00] VITALS: BP 161/77
[2023-11-25] MEDS: CRESTOR 5 MG PO (09:03)
[2023-11-25] MEDS: THERAGRAN 1 TABLET PO (09:04)
[2023-11-25] MEDS: REFRESH CELLUVISC GEL 1 DROPS BOTH EYES ×2 (09:04→13:38)
[2023-11-25] MEDS: TENORMIN 37.5 MG PO (09:04)
--- NOTE | 2023-11-25 09:58 | W.PN.HOSP.TC ---
Today's Communication/Plan
-
Discharge planning today.
Assessment / Plan
Assessment / Plan
Gen-AAOx3, NAD
HEENT-NC, AT, anicteric, clear oral mm
Neck-supple
CV-reg, no M, +S1/S2
Lungs-clear B/L
Abd-soft, NT, ND
Ext-no edema
Musculoskeletal-no cyanosis, clubbing
Skin-warm and dry
Neuro-grossly non-focal
Psych-calm, cooperative
A/P:
Cognitive dysfunction -with memory impairment of recent onset-suspicion for Lewy body disease versus Alzheimer's dementia. Recent TBI with postconcussion symptoms, resolved. Neurology consult appreciated. MRI of the brain no acute pathology but
chronic abnormalities. Discussed with daughter at bedside again today on 11/21 and agreeable to SNF. 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 Discussed with RN today. Neurology reevaluated patient yesterday on 11/21 and discussed with family at
bedside. Initiated low-dose of Seroquel 25 mg to see if it helps of sleep-wake cycle and some of her delirium as well. Monitor for any side effects. Discussed with case management associate. Discussed with daughter and patient at bedside today-they agree
Seroquel works better than benzodiazepines at this point. She has been off benzodiazepines during this hospital stay and no withdrawal symptoms so it is okay to discontinue upon discharge. Will have her follow-up with neurology as outpatient.
Planning discharge today.
Chronic LS polyradiculopathy and ambulatory dysfunction-PT OT eval.
History of nephrolithiasis
History of SVT
Glaucoma
Anxiety disorder
Hyperlipidemia
Osteoporosis
DNR
PT/OT
Anticipated Discharge: Today
Subjective/Interval History
-
Date of Service: November 25, 2023
Patient feels well. No new complaints.
Objective Data
-
Vital Signs:
Vital Signs
Temp Pulse Resp BP Pulse Ox
97.6 F 85 18 161/77 96
11/25/23 07:00 11/25/23 07:00 11/25/23 07:00 11/25/23 07:00 11/25/23 07:00
I&O
11/24/23 11/25/23 11/26/23
06:59 06:59 06:59
Intake Total 1200 / 1200 900 / 900
Balance 1200 / 1200 900 / 900
--- NOTE | 2023-11-25 10:41 | CM ---
Patient seen bedside with daughter, per daughter, plan is for discharge today with 24/7 care, will be at patient home this afternoon. Daughter requesting referral to [facility] for home therapy, referral placed in [facility]. Daughter requesting walker
for patient, will obtain script and relay message to therapy. Daughter reports at this time they will not be ordering a hospital bed. IMM reviewed, signed, placed in chart. CM will continue to follow for all discharge planning needs.
Plan; home with 24/7 care, referral to [facility] for home therapy.
--- NOTE | 2023-11-25 13:02 | W.DCSUMMARY ---
Discharge Summary
Discharge Data
Date of Admission: 11/23/23
Date of Discharge: 11/25/23
-
Pending Results: No
Hospital Course
Patient 88-year-old female history of PSVT, osteoporosis, nephrolithiasis, presented to the with generalized weakness and mental status changes. Neurology was consulted. Patient had MRI of the brain unremarkable. Neurology felt etiology was
either Lewy bodies dementia or Alzheimer's dementia. Patient was started on Seroquel and benzodiazepines were discontinued. Patient did well without any withdrawal symptoms. Patient delirium also improved with a low-dose of Seroquel. PT OT
worked with patient throughout this hospital stay. Patient was going to go to skilled facility but family will be able to provide 24 hours care so she will go home with appropriate home health services. No other events were noticed. Patient is
going to be discharged in stable condition today.
Discharge duration: 31 minutes
Discharge Plan
-
Patient Disposition: Home with Home Care
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
Diet: Low Cholesterol
Activity: As tolerated
Blood Work: Please PCP to order CBC, BMP within 1 week
Referrals:
Phani Morales DO [Family Provider] - in less than 1 week
Cecile Valencia MD [Active] - in two to three weeks
Prescriptions:
New
quetiapine 25 mg Tablet
25 mg PO HS 30 Days Qty: 30 0RF
Continued
biotin 1 MG tablet
1 mg PO DAILY
omega 5-nrs-bmk-fish oil [Fish Oil] 1,000 MG capsule
1,000 mg PO DAILY
atenolol 25 MG tablet
37.5 mg PO BID
therapeutic multivitamin Tablet
1 tab PO DAILY Qty: 0
rosuvastatin 5 mg Tablet
5 mg PO DAILY Qty: 0
Patient Comments:
CLARIFYING WITH PHARMACY 08/29/20
coenzyme Q10 [Co Q-10] 200 mg Capsule
200 mg PO DAILY
Prolia 60 mg/mL Syringe
60 mg SC [id number]
TheraTears 0.25 % Drops
1 drp BOTH EYES QID
docusate sodium 100 mg capsule
100 mg PO HS
Discontinued
lorazepam 0.5 MG tablet
0.5 mg PO BID
Patient Comments:
11/19/2023: last filled 10/25/23, 60 tabs for 30 days from [id number]
Discharge Orders:
Discharge Patient (As Directed); Ordered 11/25/23
Ordered By: Andriy Mcdonald
Discharge Date and Time
Discharge Date/Time: 11/25/23 16:20
Print Language: [place]ET[place]ESE
[2023-11-25 13:18] VITALS: BP 124/78
== END 2023-11-25 16:20 | disposition home health service (06) | DRG 57 ==
LOC: 4 EAST ACU 09:36
PROVIDERS: ADMITTING PHYSICIAN Hospitalist; ATTENDING PHYSICIAN Hospitalist; CONSULT PHYSICIAN Psychiatry & Neurology Neurology; EMERGENCY PHYSICIAN Student in an Organized Health Care Education/Training Program; FAMILY PHYSICIAN Family Medicine; OTHER PHYSICIAN Psychiatry & Neurology Neurology
DX: G31.83 Neurocognitive disorder with Lewy bodies (principal); I47.10 Supraventricular tachycardia, unspecified; F02.84 Dementia in other diseases classified elsewhere, unspecified severity, with anxiety; G30.9 Alzheimer's disease, unspecified; Z66 Do not resuscitate; M81.0 Age-related osteoporosis without current pathological fracture; H40.9 Unspecified glaucoma; E78.5 Hyperlipidemia, unspecified; L90.0 Lichen sclerosus et atrophicus; M54.17 Radiculopathy, lumbosacral region; N20.0 Calculus of kidney; G45.4 Transient global amnesia; R26.89 Other abnormalities of gait and mobility; Z88.5 Allergy status to narcotic agent; Z88.2 Allergy status to sulfonamides; Z88.8 Allergy status to other drugs, medicaments and biological substances; Z79.899 Other long term (current) drug therapy
CPT/HCPCS: 70450; 70551; 72125; 80053; 81003; 82607; 84443; 85025; 93005; 97116; 97129; 97162; 97167; 97535; 99285